=== PATIENT | male | born 1960 | race Caucasian/White ===

== ENCOUNTER 2020-10-01 10:57 | Observation (INO) | payer BC, SELFPAY ==
[2020-10-01] VITALS (8 sets, daily range): BP systolic 126–144; BP diastolic 64–98; PULSE 77–105; RESP 13–20; TEMP 36.3–37.1; O2SAT 96–100; BMI 22.1; BMI 22.9; BMI 23.0
--- NOTE | 2020-10-01 11:34 | EKG12_ITS ---
Test Reason : Blood Pressure : / mmHG Vent. Rate : 095 BPM Atrial Rate : 095 BPM P-R Int : 130 ms QRS Dur : 082 ms QT Int : 334 ms P-R-T Axes : 080 039 062 degrees QTc Int : 419 ms Normal sinus rhythm Normal ECG Confirmed by JIMBO JOHNSON, BERTO ([id number]), movie editor OBINNA FENG ([id number]) on 10/05/2020 9:57:23 AM Referred By: ARIANA Confirmed By:CHIN CHOI MD
[2020-10-01 11:36] LABS: Bedside Glucose > 500 mg/dL (70-110)
[2020-10-01 11:56] LABS: Absolute Lymphocyte Count 1.11 X10^3/uL (0.83-4.51); Absolute Neutrophil Count 5.9 X10^3/uL (2.0-7.7); Basophil# 0.04 X10^3/uL; Basophil% 0.5 % (0-1); Eosinophil# 0.03 X10^3/uL; Eosinophils% 0.4 % (0-5); Hematocrit 47.9 % (40-54); Hemoglobin 16.2 g/dL (13.0-16.5); Lymphocyte # 1.11 X10^3/ul (4.0); Lymphocyte % 14.1 % (19-41); Mean Corp Hgb Conc 33.8 g/dL (32-36); Mean Corpuscular Volume 91.6 fL (80-94); Mean Platelet Vol. 13.5 fl (6.2-12.0); Monocyte# 0.61 X10^3/uL; Monocyte% 7.8 % (0-10); NRBC Flagged by Analyzer 0 % (0-5); Neutrophil # 5.93 X10^3/uL (2.7-7.7); Neutrophil % 75.4 % (47-70); Platelet Count 177 K/mm3 (150-450); RBC Distribution Width CV 11.6 % (11.6-14.6); RBC Distribution Width SD 38.8 fl (35.1-43.9); Red Blood Count 5.23 M/mm3 (4.6-6.2); White Blood Count 7.9 K/mm3 (4.4-11.0)
[2020-10-01 12:02] LABS: ALB/GLOB Ratio 1.1 RATIO (0.9-2.4); AST(SGOT) 24 U/L (15-37); Alanine Aminotransfer ALT/SGPT 50 U/L (16-61); Albumin, Serum 4.3 g/dL (3.2-5.0); Alkaline Phosphatase 75 U/L (45-117); Anion Gap 15 (5-15); BUN 42 mg/dL (7-18); BUN/Creat Ratio 16.8 RATIO (10-20); Chloride 84 mmol/L (98-107); EST Glomerular Filtration Rate 28 mL/min (>60); Est Glom Filt Rate - Afr Amer 34 mL/min (>60); Estimated Creatinine Clearance 30.29 ml/min; Glucose 798 mg/dL (74-106); Protein, Total 8.3 g/dL (6.4-8.2); Sodium Level 120 mmol/L (136-145)
[2020-10-01 12:02] LABS: Bacteria 0 SEEN /hpf (None Seen); Mucous, Urine 0 SEEN /hpf (<or=2+); Red Blood Cells-Urine 0 SEEN /hpf (0-5); Squamous Epithelial Cells - UA 0 SEEN /hpf (0-5); White Blood Cells 0 SEEN /hpf (0-5)
[2020-10-01 12:04] LABS: Color, Urine Yellow (Yellow); Glucose, Dipstick 1000 mg/dl (Normal); Ketone-Dipstick 50 mg/dl (Negative); Leukocyte Esterase-Dipstick Negative /ul (Negative); Nitrite-Dipstick Negative (Negative); Occult Blood-Urine Negative /ul (Negative); Protein-Dipstick 15 mg/dl (Negative); Urine Bilirubin Dipstick Negative (Negative); Urine Clarity Clear (Clear); Urine Urobilinogen Normal (Normal)
--- NOTE | 2020-10-01 12:05 | RAD_ITS ---
STUDY: X-RAY CHEST REASON FOR EXAM: Male, 60 years old. Cough, HYPERGLYCEMIA, CURRENT SMOKER TECHNIQUE: Single AP portable view of the chest. COMPARISON: None. FINDINGS: Hyperinflation. The lungs are clear. A nodular density seen overlying the lateral aspect of the right lower lobe most likely representing a nipple shadow. There is no demonstrated pleural abnormality. Normal size heart. Normal mediastinum and tisha. Normal visualized pulmonary arteries. Normal visualized aortic arch and descending thoracic aorta. There are degenerative changes of the visualized thoracic spine. Normal visualized ribs, clavicles, and shoulders. There is no demonstrated abnormality of the visualized soft tissue structures of the upper abdomen. RAD/Chest 1 View (Portable) IMPRESSION: Normal x-ray examination of the chest. Electronically Signed: Duane Neumann MD at 12:21 EST , Service support ,
[2020-10-01] MEDS: 0.9% Normal Saline 1,000 ML 999 ML IV ×4 (12:28→18:04)
[2020-10-01 12:34] LABS: Lactic Acid 2.3 mmol/L (0.4-1.9)
--- NOTE | 2020-10-01 13:54 | NURSING ---
DR WESLEY L[address]
--- NOTE | 2020-10-01 14:14 | NURSING ---
ME SURG WESLEY HYPERGLYCEMIA, NEW ONSET DIABETES
--- NOTE | 2020-10-01 15:07 | HP.PCM_ITS ---
Problem List (1) DM type 2 (diabetes mellitus, type 2) Status: Acute (2) HTN (hypertension) Status: Chronic (3) Hyperlipidemia Status: Chronic (4) Tobacco abuse Status: Acute (5) Severe hyperglycemia due to diabetes mellitus Status: Acute (6) Hyponatremia Status: Acute (7) NETO (acute kidney injury) Status: Acute (8) Lactic acid acidosis Status: Acute History of Present Illness Date of Admission: 10/01/20 Mr. Harris is a 60 year old WM with a past medical history of hypertension, hyperlipidemia, and tobacco abuse who presented to the emergency department at [facility] on 10/01/2020 after being told by his primary care physician that he had a abnormally high blood sugar on recent laboratory data. On arrival his blood sugar was found to be 798. The patient states he has been having blurred vision, polydipsia, polyuria, and general malaise and fatigue. He states he has a strong family history of diabetes with both parents being diabetic. His father is secondary to cancer. He states his symptoms have been ongoing and he is just glad I do not have Covid. Vital signs in the emergency department was stable. His CBC was within normal limits. CMP showed pseudohyponatremia with a sodium of 120, corrected for glucose is 131. An elevated BUN at 42 and creatinine of 2.50. His baseline is unknown. He had a mildly elevated lactic acid at 2.3 which is likely related to his hypovolemia as his anion gap was within normal limits as was his bicarbonate level. His troponin was less than 0.015. UA showed a specific gravity of 1.010, urine glucose 1000. His acetone level was small on his serum toxicology. He was given 2 L of IV fluids bolus in the emergency department and 20 units of subcu Humulin R. This diagnosis of diabetes is new and he will be admitted to [facility] for further care. Past Medical History Past Medical History (Chronic Problems): Chronic Problems HTN (hypertension) (Chronic) Hyperlipidemia (Chronic) Allergies No Known Allergies Allergy (Verified 10/01/20 10:58) Home Medications: Ambulatory Orders Medication Instructions Recorded Atorvastatin Calcium 20 mg PO QHS 10/01/20 Lisinopril/Hydrochlorothiazide 1 ea PO BID 10/01/20 [Lisinopril-Hctz 20-12.5 mg Tab] Metoprolol Tartrate [Lopressor 100 mg PO BID 10/01/20 (Beta Suraj)] Multivitamin [Multiple Vitamins] 1 tab PO DAILY 10/01/20 Surgical History: noncontributory Psychiatric History: No pertinent psych hx Lives: With Family Smoking Status: Current every day smoker Tobacco Use: Secondhand, Cigarettes - Approximately 1 pack/day Alcohol: Rare - Occasional on weekends Drugs: None - *Family History Maternal History Items: Diabetes, Heart Disease Paternal History Items: Cancer, Diabetes Review of Systems Constitutional: Reports: Anorexia, Malaise, Weakness, Weight Change, Fatigue. Denies: Chills, Fever, Night Sweats Eyes: Reports: Blurred vision. Denies: Cataracts, Conjunctivae Inflammation, D ouble vision, Drainage, Eyelid Inflammation, Pain, Redness, Vision Change HEENT: Denies: Difficulty Hearing, Difficulty Swallowing, Ear Pain, Eye Pain, Head Aches, Nasal bleeding, Nasal Congestion, Post Nasal Drip, Sinus Congestion, Sinus Drainage, Sore Throat, Visual Changes Cardiovascular: Denies: Chest Pain, Claudication, Chest Pressure, Chest T ightness, Edema, Heaviness, Light Headedness, Orthopnea, Palpitations, Paroxysmal Noc. Dyspnea, Syncope Respiratory: Denies: Cough, Hemoptysis, Pleuritic Pain, Shortness of Breath, Shortness of breath at rest, Shortness of breath upon exertion, Sputum production, Wheezing Gastrointestinal: Reports: Constipation, - - Polydipsia. Denies: Abdominal P ain, Diarrhea, Dyspepsia, Hematemesis, Hematochezia, Nausea, Melena, Vomiting Genitourinary: Reports: Frequency, Nocturia. Denies: Dysuria, Hematuria, Hesitancy, Incontinence, Retention, Urgency Musculoskeletal: Denies: Back Pain, Joint Pain, Joint stiffness, Joint swelling, Joint Tenderness, Muscle pain, Neck Pain Skin: Denies: Dryness, Jaundice, Lesions, Pruritis, Rash, Skin Changes, Wounds Neurological: Reports: Blurred vision. Denies: Balance problems, Double vision, Change in Speech, Confusion, Difficulty swallowing, Focal weakness, Headaches, Incoordination, Numbness, Tingling, Tremor, Seizures Psychiatric: Denies: Anxiety, Depression Endocrine: Reports: Polydipsia, Polyuria. Denies: Change in Body Habitus, Heat/ Cold Intolerance, Hx of Irradiation, Hx of Thyroiditis Hematologic/ Lymphatic: Denies: Adenopathy, Anemia, Easy Bruising, Easy Bleeding, Petechiae, Purpura VTE Information - Inpt Only VTE Present on Admission: No VTE Mechan Device Prophylaxis: SCD's VTE Pharm Prophylaxis ordered?: Yes - Physical Exam Vitals/I&O's: Vital Signs Temp Pulse Resp BP Pulse Ox 98.8 F 90 13 143/98 H 100 10/01/20 14:39 10/01/20 14:39 10/01/20 14:39 10/01/20 14:39 10/01/20 14:39 Oxygen Delivery Method Room Air Weight: 70.534 kg Body Mass Index (BMI) 22.9 Intake and Output for Last 24 Hours 09/29/20 09/30/20 10/01/20 23:59 23:59 23:59 Intake Total 1000 / 1000 Balance 1000 / 1000 General: Alert, Oriented x3, Cooperative, No apparent distress, Well developed, Well nourished, - - Upper middle-aged white male sitting up in bed, appears comfortable, nontoxic HEENT: Atraumatic, PERRLA, EOMI, Normocephalic Oral: Moist Mucosa, No Gingival or Mucosal Lesions/ Ulcerations, - - Mallampati 2, no thrush, upper dentures in place Neck: Supple, No JVD, Negative Carotid Bruits, Negative Hepatojugular Reflux, No Nodes, No Nuchal Rigidity, Trachea Midline, Thyroid Normal Size and Texture Lungs: Clear to auscultation, No rhonchi, No wheeze, No rales, Diminished Cardiovascular: Regular rate, Regular Rhythm, Normal S1, Normal S2, No murmurs, No Ectopic Activity, No rub noted, No Gallop Abdomen: Bowel Sounds Present, Soft, Non Tender, Non-Distended, No hernias noted Extremities: No clubbing, No cyanosis, No edema, Capillary Refill Less than 3 Seconds, Peripheral Pulses Normal Skin: No rashes, No breakdown Musculoskeletal: No Tenderness to Palpation of Joints or Extremities, No Muscle Wasting Lymphatic: No Cervical, Supraclavicular, or Inguinal Adenopathy Neurological: Cranial nerves II-XII grossly intact, Deep Tendon Reflexes 2+/4 and Symmetrical, Neuro grossly intact, Motor Exam 5/5 strength throughout, Muscle tone normal Psych/Mental Status: Normal Affect, Appropriate, - - Very pleasant Microbiology Past 72 Hours 10/01/20 11:45 Mucosa - Nose SARS-CoV-2 Antigen (Rapid) - Final Laboratory Results 10/01/20 11:10: WBC 7.9, RBC 5.23, Hgb 16.2, Hct 47.9, MCV 91.6, MCH 31.0, MCHC 33.8, RDW Std Deviation 38.8, RDW Coeff of [place] 11.6, Plt Count 177, MPV 13.5 H, Immature Gran % (Auto) 1.800 H, Neut % (Auto) 75.4 H, Lymph % (Auto) 14.1 L, [place] % (Auto) 7.8, Eos % (Auto) 0.4, Baso % (Auto) 0.5, Absolute Neuts (auto) 5.9, Absolute Lymphs (auto) 1.11, Nucleated RBC % 0 10/01/20 11:10: Sodium 120 L, Potassium 5.0, Chloride 84 L, Carbon Dioxide 21.0, Anion Gap 15, BUN 42 H, Creatinine 2.50 H, Estim Creat Clear Calc 30.29, Est GFR (MDRD) Af Amer 34 L, Est GFR (MDRD) Non-Af 28 L, BUN/Creatinine Ratio 16.8, Glucose 798 H*, Calcium 10.0, Total Bilirubin 1.10 H, AST 24, ALT 50, Alkaline Phosphatase 75, Troponin I < 0.015, Total Protein 8.3 H, Albumin 4.3, Globulin 4.0, Albumin/Globulin Ratio 1.1 10/01/20 11:10: Acetone Level SMALL H 10/01/20 11:10: Hemoglobin A1c Pending 10/01/20 11:28: POC Glucose > 500 H* 10/01/20 11:40: Lactic Acid 2.3 H* 10/01/20 11:52: Urine Color Yellow, Urine Clarity Clear, Urine pH 5.0, Ur Specific [place] 1.010, Urine Protein 15 H, Urine Glucose (UA) 1000 H, Urine Ketones 50 H, Urine Occult Blood Negative, Urine Nitrite Negative, Urine Bilirubin Negative, Urine Urobilinogen Normal, Ur Leukocyte Esterase Negative, Urine RBC 0 SEEN, Urine WBC 0 SEEN, Ur Squamous Epith Cells 0 SEEN, Urine Bacteria 0 SEEN, Urine Mucus 0 SEEN Current Medications Acetaminophen (Acetaminophen 325 Mg Tablet) 650 mg PO Q6H PRN PRN PRN Reason: Pain Score 1-10/Temp > 100.7 F Al Hydroxide/Mg Hydroxide (Mag Hydrox/Al Hydrox/Simeth 30 Ml Udc) 30 ml PO Q6H PRN PRN PRN Reason: Gastric Burning Atorvastatin Calcium (Atorvastatin Calcium 20 Mg Tablet) 20 mg PO QHS [facility] Heparin Sodium (Porcine) (Heparin Injection (Vial) 5,000 Unit/Ml Vial) 5,000 unit SC Q12 JASVIR Hydralazine HCl (Hydralazine 20 Mg/Ml Vial) 10 mg IV Q6H PRN PRN PRN Reason: SBP>160 Sodium Chloride () 1,000 mls @ 150 mls/hr IV .Q6H40M [facility] Insulin Glargine (Insulin Glargine 100 Units/Ml Pen) 14 units SC QHS [facility] Insulin Human Lispro (Insulin Lispro 100 Unit/Ml Insuln.Pen) 4 unit SC BREAKFAST [facility] Insulin Human Lispro (Insulin Lispro 100 Unit/Ml Insuln.Pen) 4 unit SC DINNER [facility] Insulin Human Lispro (Insulin Lispro 100 Unit/Ml Insuln.Pen) 4 unit SC LUNCH [facility] Insulin Human Lispro (Insulin Lispro 100 Unit/Ml Insuln.Pen) 0 unit SC TIDAC JASVIR; Protocol Insulin Human Lispro (Insulin Lispro 100 Unit/Ml Insuln.Pen) 20 unit SC X1 ONE Stop: 10/01/20 15:16 Insulin Human Regular (Insulin U-500 Pen) 20 units SC X1 ONE Stop: 10/01/20 13:59 Melatonin (Melatonin 3 Mg Tablet) 3 mg PO QHS PRN PRN PRN Reason: INSOMNIA Metoprolol Tartrate (Metoprolol Tartrate 100 Mg Tablet) 100 mg PO BID [facility] Multivitamins (Multivitamins,Therapeutic Tablet) [facility] Ondansetron HCl (Ondansetron 4 Mg/2 Ml Vial) 4 mg IV Q8H PRN PRN PRN Reason: NAUSEA/VOMITING Senna/Docusate Sodium (Senna/Docusate Sodium 1 Tablet) 2 tablet PO BID PRN PRN PRN Reason: Constipation Sodium Chloride (0.9% Saline Lock 10 Ml Syringe) 10 - 40 ml IV UD PRN PRN Reason: SALINE FLUSH Assessment/Plan All Active Problems DM type 2 (diabetes mellitus, type 2) (Acute) Tobacco abuse (Acute) Severe hyperglycemia due to diabetes mellitus (Acute) Hyponatremia (Acute) NETO (acute kidney injury) (Acute) Lactic acid acidosis (Acute) New onset DM-2 -IV hydration--> continue normal saline at 150 cc/h -Patient was given 20 units of log in the emergency department -Start weight-based Lantus at 14 units this evening -Lispro 4 units 3 times daily with meals -Low-dose Humalog SSI -BGT AC and HS -A1c is pending -Check TSH -Dietitian to see -Recommend endocrinology follow-up after discharge NETO -Suspect related to dehydration with osmotic diuresis caused by hyperglycemia -IV hydration at normal with normal saline 150 cc per hour x24 hours -If not improved in the morning would encourage further work-up with retroperitoneal ultrasound and urine studies -BMP in a.m. -Avoid nephrotoxins -Hold lisinopril HCTZ Hypertension Continue metoprolol 100 mg twice daily -As needed hydralazine 10 mg IV every 6 hours as needed Hyperlipidemia -Continue atorvastatin Tobacco abuse -Patient smokes approximately 1 pack/day -Recommend cessation -Nicotine patch available DVT prophylaxis -Heparin twice daily -SCDs while in bed CODE STATUS -Full Inpatient E&M: 42536 Init Hosp L3
[2020-10-01] MEDS: Insulin Lispro 100 UNIT/ML INSULN.PEN 20 UNIT SC (15:21)
[2020-10-01 15:30] LABS: Bedside Glucose 480 mg/dL (70-110)
--- NOTE | 2020-10-01 15:36 | NURSING ---
Education provided to patient on checking blood glucose and insulin administration, demonstration provided, receptive to education.
[2020-10-01 15:37] LABS: Hemoglobin A1c 12.3 % (3.8-5.6)
[2020-10-01 15:54] LABS: Reflex Lactate? Y
[2020-10-01] MEDS: 0.9% Normal Saline 1,000 ML 150 ML IV (16:02)
--- NOTE | 2020-10-01 16:34 | ED.DCSUM_ITS ---
- ER Visit Summary Date of Service: 10/01/20 Chief Complaint: Hyperglycemia History of Present Illness: The patient is a 60 M who presents with elevated blood sugars for the past 3 days. Patient had outpatient labs drawn 2 days ago and his blood sugar at that time was 845. Patient states he has not eaten for the past 2 days. Patient states he has only been taking oral fluids. Patient states his primary care physician called him today and referred him to the emergency department. Patient admits to urinary frequency, polydipsia, polyuria. Patient admits to some general weakness. Physical Examination: Vital signs are stable except for slight tachycardia of 105. Patient is afebrile. Patient is in no acute distress. Oral mucosa is pink and moist. Neck is supple. Trachea is midline. There is no JVD noted. Heart was regular rate and rhythm. Lungs are clear and equal bilaterally. Abdomen is soft. Bowel sounds are normal. There is no tenderness. There is no rebound or guarding noted. Skin is warm dry. Cranial nerves II through XII are intact. There are no focal motor or sensory deficits noted. Extremities are intact. There is no calf tenderness or edema. Test Results: CBC was within normal limits. Comprehensive metabolic profile showed a glucose of 798, sodium of 120, chloride of 84, BUN of 42, and creatinine of 2.5. Troponin was normal. Lactate was slightly elevated 2.3. Serum ketone was small. Urinalysis does not show any evidence of urinary tract infection. Portable 1 view chest x-ray was obtained. On my interpretation, lung castillo are clear. There is normal cardiac silhouette. Bony thorax is normal. There is no acute process noted. Radiologist also interpreted the x- ray and agrees. EKG was obtained. On my interpretation, there is normal sinus rhythm with a rate of 95. There are no acute ST or T wave changes. This was unchanged compared to previous EKG dated 11/13/2008 Emergency Department Course and Treatment: Patient was given 3 L of IV fluids. Patient was given Humulin R subcutaneous. Case was discussed with the hospitalist. She will admit the patient to her service. Patient understood and was agreeable with the plan. All questions were answered. Disposition: Admit to hospital Impression: 1. Hyperglycemia 2. New onset diabetes 3. Acute kidney injury This note was generated with [employer]ation software. It may contain incorrect words, spelling, and punctuation that were not noted in review of the chart prior to signing ED Disposition - Plan for ED Patient: Disposition: Acute Care Hospital [facility] Diagnosis: Hyperglycemia, Acute kidney injury, DM type 2 (diabetes mellitus, type 2)
[2020-10-01 17:49] LABS: Lactic Acid 3.5 mmol/L (0.4-1.9)
[2020-10-01 18:11] LABS: Bedside Glucose 283 mg/dL (70-110)
[2020-10-01] MEDS: Atorvastatin Calcium 20 MG Tablet PO (22:05)
[2020-10-01] MEDS: Heparin Injection (Vial) 5,000 UNIT/ML VIAL 5000 UNIT SC (22:05)
[2020-10-01] MEDS: Metoprolol Tartrate 100 MG Tablet PO (22:06)
[2020-10-01 22:31] LABS: Bedside Glucose 305 mg/dL (70-110)
[2020-10-02 02:27] VITALS: BP 128/70; PULSE 54; RESP 18; TEMP 36.4; O2SAT 98
[2020-10-02] MEDS: 0.9% Normal Saline 1,000 ML 150 ML IV ×2 (05:10→10:08)
[2020-10-02 06:26] LABS: Absolute Lymphocyte Count 1.22 X10^3/uL (0.83-4.51); Absolute Neutrophil Count 2.5 X10^3/uL (2.0-7.7); Basophil# 0.03 X10^3/uL; Basophil% 0.7 % (0-1); Eosinophils% 2.4 % (0-5); Hematocrit 34.7 % (40-54); Hemoglobin 11.9 g/dL (13.0-16.5); Lymphocyte # 1.22 X10^3/ul (4.0); Mean Corp Hgb Conc 34.3 g/dL (32-36); Mean Corpuscular Hgb 31.5 pg (27.0-32.0); Mean Corpuscular Volume 91.8 fL (80-94); Mean Platelet Vol. 12.6 fl (6.2-12.0); Monocyte% 7.1 % (0-10); NRBC Flagged by Analyzer 0 % (0-5); Neutrophil # 2.54 X10^3/uL (2.7-7.7); Neutrophil % 60.3 % (47-70); POSITIVE COUNT YES; Platelet Count 95 K/mm3 (150-450); RBC Distribution Width CV 11.8 % (11.6-14.6); RBC Distribution Width SD 39.6 fl (35.1-43.9); Red Blood Count 3.78 M/mm3 (4.6-6.2); White Blood Count 4.2 K/mm3 (4.4-11.0)
[2020-10-02 07:06] LABS: Anion Gap 5 (5-15); BUN 26 mg/dL (7-18); BUN/Creat Ratio 20.6 RATIO (10-20); Chloride 107 mmol/L (98-107); Creatinine, Serum 1.26 mg/dL (0.70-1.30); EST Glomerular Filtration Rate 62 mL/min (>60); Est Glom Filt Rate - Afr Amer 75 mL/min (>60); Estimated Creatinine Clearance 60.64 ml/min; Glucose 233 mg/dL (74-106); Magnesium 1.9 mg/dL (1.6-2.6); Phosphorus 2.3 mg/dL (2.5-4.9); Potassium 4.1 mmol/L (3.5-5.1); Sodium Level 135 mmol/L (136-145); Thyroid Stim Hormone (TSH) 0.74 uIU/mL (0.358-3.74)
[2020-10-02 07:35] VITALS: O2SAT 96
[2020-10-02] MEDS: Insulin Lispro 100 UNIT/ML INSULN.PEN SC ×2 (09:16→11:27)
[2020-10-02] MEDS: Aspirin 81 MG TAB.CHEW PO (09:21)
[2020-10-02] MEDS: Multivitamins,Therapeutic Tablet 1 TABLET PO (09:21)
[2020-10-02 09:23] VITALS: BP 126/71; PULSE 64; RESP 18; TEMP 36.7; O2SAT 97
[2020-10-02] MEDS: Heparin Injection (Vial) 5,000 UNIT/ML VIAL 5000 UNIT SC (09:23)
[2020-10-02 09:24] VITALS: BP 126/71; PULSE 64
[2020-10-02] MEDS: Metoprolol Tartrate 100 MG Tablet PO (09:24)
--- NOTE | 2020-10-02 11:14 | PCM.NTREPORT ---
Nutrition Therapy Report - History Nutrition Services has been consulted to:: Conduct nutrition education Current diet / nutrition support order:: 2000 calorie controlled, consistent CHO - Anthropometric Measurements Height:: 5 ft 9 in Weight:: 70.534 kg Body Mass Index (BMI):: 22.9 - Relevant Labs Relevant Labs:: WBC 4.2 K/mm3 (4.4-11.0) L 10/02/20 05:50 RBC 3.78 M/mm3 (4.6-6.2) L 10/02/20 05:50 Hgb 11.9 g/dL (13.0-16.5) L 10/02/20 05:50 Hct 34.7 % (40-54) L 10/02/20 05:50 Plt Count 95 K/mm3 (150-450) L 10/02/20 05:50 MPV 12.6 fl (6.2-12.0) H 10/02/20 05:50 Immature Gran % (Auto) 1.800 % (0.0-0.9) H 10/01/20 11:10 Neut % (Auto) 75.4 % (47-70) H 10/01/20 11:10 Lymph % (Auto) 14.1 % (19-41) L 10/01/20 11:10 Sodium 135 mmol/L (136-145) L 10/02/20 05:50 Chloride 84 mmol/L (98-107) L 10/01/20 11:10 BUN 26 mg/dL (7-18) H 10/02/20 05:50 Creatinine 2.50 mg/dL (0.70-1.30) H 10/01/20 11:10 Est GFR (MDRD) Af Amer 34 mL/min (>60) L 10/01/20 11:10 Est GFR (MDRD) Non-Af 28 mL/min (>60) L 10/01/20 11:10 BUN/Creatinine Ratio 20.6 RATIO (10-20) H 10/02/20 05:50 Glucose 233 mg/dL (74-106) H 10/02/20 05:50 Hemoglobin A1c 12.3 % (3.8-5.6) H 10/01/20 11:10 Lactic Acid 3.5 mmol/L (0.4-1.9) H* 10/01/20 16:59 Calcium 8.0 mg/dL (8.5-10.1) L 10/02/20 05:50 Phosphorus 2.3 mg/dL (2.5-4.9) L 10/02/20 05:50 Total Bilirubin 1.10 mg/dL (0.20-1.00) H 10/01/20 11:10 Total Protein 8.3 g/dL (6.4-8.2) H 10/01/20 11:10 - Assessment Food / Nutrition-Related History:: Good intake at meals since admission. Pt states he was not eating much over past 3-4 days d/t hyperglycemia- was hoping fasting would bring down BG. 4.5#/2.8% wt loss < 1 week. No special diet at home. Drinks 4-5 cans of Pepsi/day, coffee w/ sugar and cream every AM. - Nutrition Diagnosis Problem / Etiology / Signs & Symptoms (PES):: Food and nutrition related knowledge deficit r/t lack of previous exposure to diabetes nutrition education as evidenced by reported lack of knowledge of CHO containing foods, high intake of CHO containing beverages, elevated blood glucose, A1C 12.3% Evidence of Malnutrition Exists:: No - Nutrition Intervention Nutrition Prescription:: 7077-1455 calories/day (1.3xRMR). 60-70 g protein/day (1g/kg). 2000mL fluid/day (30mL/kg) - Food / Nutrient Delivery Interventions Summary of nutrition intervention:: 10/01/20: Detailed instruction given to pt regarding CHO in diet. Encouraged pt to use plate method when planning meals/snacks. Explained need for consistent CHO throughout the day. Discussed limiting intake of sugar sweetened beverages- pt states he can work on cutting back on pop/coffee w/ sugar. ADA Plate Method handout provided. 10/02/20: Pt asking for a more detailed book for DM diet. Given ADA Food Lists for Diabetes book. Reviewed contents of book w/ pt, explained book discusses serving sizes and CHO content of different foods. Pt states this will be helpful. RDN contact info given, encouraged pt to call w/ questions. Nutrition support ordered as / adjusted to:: continue consistent CHO, 2000 calorie controlled diet. Nutrition education provided?: Yes - see above - MNT Monitoring Further MNT monitoring and evaluation required?: Yes - Would benefit from referral to [facility] for outpatient f/u MNT Follow-up in:: 3-5 days
[2020-10-02 11:19] VITALS: BMI 22.9
[2020-10-02] MEDS: metFORMIN HCl 500 MG Tablet PO (11:23)
[2020-10-02 11:25] LABS: Bedside Glucose 223 mg/dL (70-110)
[2020-10-02 11:36] LABS: Bedside Glucose 257 mg/dL (70-110)
--- NOTE | 2020-10-02 12:20 | CASEMGMT ---
This RN CM to room to talk to pt regarding discharge plan. Pt states has been giving own insulin and checking blood sugar here and states no concerns regarding this going home. Pt is aware that [facility] has DM initiative and to let them know that he is a new onset DM when he calls to make f/u appt with Dr. Castro, voices understanding. Pt voices no further questions/concerns/needs at this time. SStaten RN CM
--- NOTE | 2020-10-02 12:30 | DCINST_ITS ---
- Discharge Diagnoses Current Active Problems: Current Active and Chronic Problems DM type 2 (diabetes mellitus, type 2) (Acute) HTN (hypertension) (Chronic) Hyperlipidemia (Chronic) Tobacco abuse (Acute) Severe hyperglycemia due to diabetes mellitus (Acute) Hyponatremia (Acute) NETO (acute kidney injury) (Acute) Lactic acid acidosis (Acute) Hyperglycemia (Acute) You will use the following diet at home:: Calorie/Carbohydrate Controlled (specify 1200, 1400, etc) - 1800 canelo Your food should be the consistency of: Regular Your liquids should be the consistency of: Regular/Thin Discharge Activity: Return to Normal Activity Weight Bearing Status: Full weight bearing Additional Instructions: Take your blood sugars three times a day before meals and keep a chart of the readings-notify your ohysician if blood sugar is over 400 Begin Lantus insulin 25 units subcu at breakfast daily starting 10/03/2020 Allergies/Adverse Reactions: Allergies No Known Allergies Allergy (Verified 10/01/20 10:58) Medications to take at Discharge Atorvastatin Calcium 20 mg PO QHS 10/01/20 Metoprolol Tartrate [Lopressor (beta estee)] 100 mg PO BID 10/01/20 Multivitamin [Multiple Vitamins] 1 tab PO DAILY 10/01/20 Insulin Glargine [Lantus SoloStar Pen] 25 - 35 units SC BREAKFAST #5 pen 10/02/20 Lisinopril/Hydrochlorothiazide [Lisinopril-Hctz 20-12.5 mg Tab] 1 ea PO DAILY #1 tab 10/02/20 Pen Needle, Diabetic [Pen Needle] 1 ea MC DAILY #100 dis.needle 10/02/20 metFORMIN HCl [Glucophage] 500 mg PO UD #120 tab 10/02/20 The following prescriptions were given: metFORMIN HCl [Glucophage] 500 mg PO UD #120 tab Transmission Status: Received by [id number] Insulin Glargine [Lantus SoloStar Pen] 25 - 35 units SC BREAKFAST #5 pen Transmission Status: Received by [id number] Lisinopril/Hydrochlorothiazide [Lisinopril-Hctz 20-12.5 mg Tab] 1 ea PO DAILY #1 tab Transmission Status: Received by [id number] Pen Needle, Diabetic [Pen Needle] 1 ea MC DAILY #100 dis.needle Transmission Status: Received by [id number] Orders to be completed after discharge: Glucometer Location: None Selected Glucometer Location: None Selected Primary Care Physician: Audelia Castro MD [Primary Care Provider] - Please follow up with your Primary Care Physician in: next week Test Results: Test results from this visit will be discussed in further detail at your follow- up appointment, if applicable.
--- NOTE | 2020-10-02 18:27 | DS.PCM_ITS ---
Discharge Date and Diagnosis - Problem List Patient Problems: Active and Suspected Problems DM type 2 (diabetes mellitus, type 2) (Acute) Tobacco abuse (Acute) Severe hyperglycemia due to diabetes mellitus (Acute) Hyponatremia (Acute) NETO (acute kidney injury) (Acute) Lactic acid acidosis (Acute) Hyperglycemia (Acute) Date of Admission: 10/01/20 Date of Discharge: 10/02/20 - Primary Discharge Diagnosis Acute Problems: Active Problems DM type 2 (diabetes mellitus, type 2) (Acute)-uncontrolled Severe hyperglycemia due to diabetes mellitus (Acute) Hyponatremia (Acute) NETO (acute kidney injury) (Acute) Lactic acid acidosis (Acute)-secondary to NETO Vaginal hypertension - Secondary Discharge Diagnosis Chronic Problems: Chronic Problems HTN (hypertension) (Chronic) Hyperlipidemia (Chronic) Hospital Course and Treatment Operations: None Procedures: None Summary of Care Provided: The patient is a 60 year old M was seen in the emergency room at [facility] with a chief complaint of elevated sugars for the past 3 days, patient had outpatient labs drawn 2 days prior and his blood sugar at that time was 845. Patient went on a fast and an attempt to lower his blood sugar, he is was only taking oral fluids. His primary care physician called him and referred him to the emergency room for further care. Patient admits to urinary frequency polydipsia and polyuria. Labs reveal a normal CBC, comprehensive metabolic profile showed a glucose of 798, sodium of 120, chloride of 84, BUN of 42, and creatinine of 2.5. Lactic acid was slightly elevated 2.3, serum ketone level small, urinalysis was unremarkable. Chest x-ray was obtained which was unremarkable. Patient was given 3 L of IV fluids and he was given Humulin R subcutaneously and he was placed in observation status on PCU, aggressive IV fluid administration was carried out and his blood sugars were monitored. He was seen in consultation by the dietitian. Patient's diuretics were held as well as his DWIGHT inhibitor. On 10/02/2020, patient was seen and examined: On examination he appeared in good health and spirits. Vital signs as documented. Skin warm and dry and without overt rashes. Neck without JVD, neck was supple, trachea midline, thyroid was normal. Lungs clear bilaterally, normal air movement was noted. Heart exam notable for regular rhythm, normal sounds and absence of murmurs, rubs or gallops. Abdomen unremarkable and without evidence of organomegaly, masses, or abdominal aortic enlargement. Bowel sounds are present, abdomen is not distended. Extremities nonedematous, no cyanosis was noted, no clubbing was noted. Neuro: Cranial nerves II through XII are grossly intact, no focal motor deficits were noted, sensation to light touch and pinprick intact, motor exam 5/5 throughout. Psych: Patient is alert and oriented x3, he does not appear anxious or depressed, he does not appear agitated. On 10/02/2020, patient appeared stable for discharge home, his blood sugars were improved. Patient Problems: Active and Suspected Problems DM type 2 (diabetes mellitus, type 2) (Acute) Tobacco abuse (Acute) Severe hyperglycemia due to diabetes mellitus (Acute) Hyponatremia (Acute) NETO (acute kidney injury) (Acute) Lactic acid acidosis (Acute) Hyperglycemia (Acute) - Physical Exam Vitals/I&O's: Vital Signs Temp Pulse Resp BP Pulse Ox 98.1 F 64 18 126/71 H 97 10/02/20 09:23 10/02/20 09:24 10/02/20 09:23 10/02/20 09:24 10/02/20 09:23 Oxygen Delivery Method Room Air Weight: 70.534 kg Body Mass Index (BMI) 22.9 Intake and Output for Last 24 Hours 09/30/20 10/01/20 10/02/20 23:59 23:59 23:59 Intake Total 4945 / 4945 1640 / 1640 Balance 4945 / 4945 1640 / 1640 Microbiology Past 72 Hours 10/01/20 11:45 Mucosa - Nose SARS-CoV-2 Antigen (Rapid) - Final Laboratory Results 10/01/20 22:13: POC Glucose 305 H 10/02/20 05:50: WBC 4.2 L, RBC 3.78 L, Hgb 11.9 L, Hct 34.7 L, MCV 91.8, MCH 31.5, MCHC 34.3, RDW Std Deviation 39.6, RDW Coeff of [place]ina 11.8, Plt Count 95 L, MPV 12.6 H, Immature Gran % (Auto) 0.500, Neut % (Auto) 60.3, Lymph % (Auto) 29.0, Buchanan % (Auto) 7.1, Eos % (Auto) 2.4, Baso % (Auto) 0.7, Absolute Neuts (auto) 2.5, Absolute Lymphs (auto) 1.22, Nucleated RBC % 0 10/02/20 05:50: Sodium 135 L, Potassium 4.1, Chloride 107, Carbon Dioxide 23.0, Anion Gap 5, BUN 26 H, Creatinine 1.26, Estim Creat Clear Calc 60.64, Est GFR (MDRD) Af Amer 75, Est GFR (MDRD) Non-Af 62, BUN/Creatinine Ratio 20.6 H, Glucose 233 H, Calcium 8.0 L, Phosphorus 2.3 L, Magnesium 1.9, TSH 0.74 10/02/20 09:14: POC Glucose 223 H 10/02/20 11:27: POC Glucose 257 H Discharge Activity: Return to Normal Activity Weight Bearing Status: Full weight bearing Home Medications: Medications to take at Discharge Atorvastatin Calcium 20 mg PO QHS 10/01/20 Metoprolol Tartrate [Lopressor (beta estee)] 100 mg PO BID 10/01/20 Multivitamin [Multiple Vitamins] 1 tab PO DAILY 10/01/20 Insulin Glargine [Lantus SoloStar Pen] 25 - 35 units SC BREAKFAST #5 pen 10/02/20 Lisinopril/Hydrochlorothiazide [Lisinopril-Hctz 20-12.5 mg Tab] 1 ea PO DAILY #1 tab 10/02/20 Pen Needle, Diabetic [Pen Needle] 1 ea MC DAILY #100 dis.needle 10/02/20 metFORMIN HCl [Glucophage] 500 mg PO UD #120 tab 10/02/20 Following Prescriptions Were Given to Patient: metFORMIN HCl [Glucophage] 500 mg PO UD #120 tab Transmission Status: Received by [facility] Insulin Glargine [Lantus SoloStar Pen] 25 - 35 units SC BREAKFAST #5 pen Transmission Status: Received by [facility] Lisinopril/Hydrochlorothiazide [Lisinopril-Hctz 20-12.5 mg Tab] 1 ea PO DAILY #1 tab Transmission Status: Received by [facility] Pen Needle, Diabetic [Pen Needle] 1 ea MC DAILY #100 dis.needle Transmission Status: Received by [facility] Other Amb Orders: Glucometer Location: None Selected Glucometer Location: None Selected Primary Care Physician: Audelia Castro MD [Primary Care Provider] - Please follow up with your Primary Care Physician in: next week Disposition: Home Minutes spent on discharge:: 30 Patient Condition:: Stable Medical Necessity - Tobacco Use Smoking Status: Current every day smoker Tobacco Use: Secondhand, Cigarettes Meaningful Use Info Meaningful Use Diagnoses (Choose all that apply): None applicable OBSV E&M: 03685 Observation care discharge
== END 2020-10-02 13:19 | disposition home health service (06) ==
LOC: ED 12:27 → PCU 14:17
PROVIDERS: Admitting Provider Internal Medicine; Emergency Provider Emergency Medicine; PCP Internal Medicine; Visit Provider Internal Medicine
DX: E11.65 Type 2 diabetes mellitus with hyperglycemia (principal); E78.5 Hyperlipidemia, unspecified; I10 Essential (primary) hypertension; Z79.899 Other long term (current) drug therapy; E87.1 Hypo-osmolality and hyponatremia; N17.9 Acute kidney failure, unspecified; Z83.3 Family history of diabetes mellitus; F17.210 Nicotine dependence, cigarettes, uncomplicated
CPT/HCPCS: 36415; 71045; 80048; 80053; 81001; 82009; 82962; 83036; 83605; 83735; 84100; 84443; 84484; 85025; 87426; 93005; 96360; 96361; 96372; 97802; 97803; 99218; 99251; 99285; 99406; J7030; A4216; G0378; G0463

== ENCOUNTER 2023-02-03 09:16 | Day surgery (SDC) | payer BC, SELFPAY ==
[2023-02-03] VITALS (7 sets, daily range): BP systolic 97–134; BP diastolic 60–91; PULSE 60–76; RESP 16–18; TEMP 36.2–36.8; O2SAT 95–99; BMI 22.1
[2023-02-03] MEDS: Lactated Ringers 1,000 ML 15 ML IV (09:44)
[2023-02-03 10:08] LABS: Bedside Glucose 120 mg/dL (74-106)
--- NOTE | 2023-02-03 10:15 | IMM_PTH ---
PATIENT: SYL AGUAYO Jr. LOC: EN U#:[id number] AGE/SX: 62/M ROOM: RE02/03/[address]: Dr. Manuelito Baum MD : 1960 BED: DIS: 02/03/2023 SPEC #: [id number] RECD: 02/03/23 13:33 STATUS: COLLIN RETima #: [id number] JEIMY: 02/03/23 10:[address]: Manuelito Baum DEPT: IMMUNOHISTOCHEMISTRY RECD BY: Alisia Staley ENTERED: 02/03/23 13:35 SP TYPE: IMMUNO OTHR DR: Dr. Audelia Castro MD Tissues: A - Stomach, NOS Procedures: H Pylori (initial) PHYSICIAN & INSTITUTION [place] [id number] SPECIMEN INFORMATION: Tissue Source: A - Antrum biopsy Clinical Info: History of colon polyps, abnormal weight loss Specimen Number: [id number] CPT code: 47834 METHODOLOGY: Deparaffinized sections of prefer/formalin-fixed tissue or PAP/DQ stained slides are incubated with monoclonal/polyclonal antibodies/oligonucleotide probes. Localization is made via biotin free immunoperoxidase method. Appropriate controls are performed and reacted as expected. Results on target cell population are indicated in the following table: RESULTS: ANTIBODY / CLONE RESULT Block A H Pylori (polyclonal) negative These tests were developed and their performance characteristics determined by [facility]. They may not have been cleared or approved by the U.S. Food and Drug Administration. The FDA has determined that such clearance or approval is not necessary. The above immunohistochemical/dualISH markers are ordered and reviewed by the Pathologist. INTERPRETATION: A. Antrum, biopsy: Negative for Helicobacter pylori organisms. SJ:carissa 02/08/2023
--- NOTE | 2023-02-03 10:15 | EGD_PTH ---
PATIENT: SYL AGUAYO Jr. LOC: EN U#:[id number] AGE/SX: 62/M ROOM: RE02/03/[address]: Dr. Manuelito Baum MD : 1960 BED: DIS: 02/03/2023 SPEC #: [id number] RECD: 02/03/23 12:09 STATUS: COLLIN VENESSA #: [id number] JEIMY: 02/03/23 10:[address]: Manuelito Baum DEPT: SURGICAL PATHOLOGY RECD BY: Liza Rosario ENTERED: 02/03/23 12:54 SP TYPE: EGD BIOPSY OT DR: Dr. Audelia Castro MD Tissues: A - Gastric mucous membrane B - Stomach, NOS Procedures: Surgery Specimen Level IV HEADER OPERATION: Colonoscopy, EGD ([facility]), biopsy PRE-OP DIAGNOSIS: History of colon polyps, abnormal weight loss TISSUE SUBMITTED: A - Antrum biopsy for H. pylori and path, B - Stomach ulcer margin biopsy MICROSCOPIC DIAGNOSIS A. Antrum, biopsy: Mild gastritis. See microscopic description and comment. B. Stomach ulcer, biopsy: Mild gastritis. See microscopic description. SJ:carissa 02/06/2023 COMMENT A. The results of immunohistochemistry for Helicobacter pylori will be reported separately ([id number]). MICROSCOPIC DESCRIPTION Slides are reviewed. A & B. The specimen shows fragments of gastric mucosa with chronic inflammatory cell infiltrates in the lamina propria consisting of lymphocytes and plasma cells, consistent with mild chronic gastritis. GROSS DESCRIPTION A - Received in fixative is one container labeled with the patient's name and designated antrum biopsy. The specimen consists of one irregular fragment of light jordan soft tissue that measures 0.6 x 0.3 x 0.1 cm. The specimen is totally submitted in one cassette. B - Received in fixative is one container labeled with the patient's name and designated stomach ulcer. The specimen consists of one irregular fragment of light jordan soft tissue that measures 0.5 x 0.5 x 0.1 cm. The specimen is totally submitted in one cassette. / AM:carissa 02/03/2023 TC:3 CPT: 81160 x2
--- NOTE | 2023-02-03 10:55 | HP.PCM_ITS ---
History and Physical Date of Admission: 02/03/23 Intake Vital Signs 12/23/2307:27 Height 5 ft 9 in Weight: 138 lb BMI 20.3 BP 121/84 H Blood Pressure Location Rt brachial Position Sitting Respiration 19 H Pulse 85 Pulse Source Monitor Temp Source Temporal Pulse Oximetry (%) 96 Intake Visit Reasons: CHRONIC CONSTIPATION/SIGNIFICANT WEIGHT LOSS Chief Complaint: dm Allergies No Known Allergies Allergy (Verified 12/22/22 08:30) Medications multivitamin 1 tab PO DAILY SUPPLEMENT 10/01/20 [History Confirmed 12/22/22] saw palm 160 mg-vit E 100 unit-selen 100 ukj-rfkz-icjlla-pygeum tablet ([employer]) tab PO 12/16/22 [History Confirmed 12/22/22] PFSH Medical History Hx of colonic polyps Surgical History History of colonoscopy Social History Smoking Status: Current every day smoker HPI HPI HPI: Patient is here for colonoscopy and EGD. The patient notes that he had a colonoscopy 3 years ago and 9 polyps were removed. He is due for surveillance. He denies any abdominal pain or blood in the stool. The patient also had a large amount of weight loss but says he has been eating less since his lower teeth were removed. ROS General General: Yes weight change; No fatigue HEENT HEENT: No difficulty swallowing Endo Endocrine: No thyroid disease Musc Musculoskeletal: No back problems or arthritis Cardio Cardiovascular: No pacemaker, heart disease, atrial fibrillation, high blood pressure, heart attack, heart stent, palpitations or chest pain Psych Psychiatric: No depression or anxiety Resp Respiratory: No shortness of breath, No cough, No COPD, No asthma and No emphysema Gastro Gastrointestinal: No abdominal pain, No nausea or vomiting, No diarrhea, No constipation, No blood in stool, No acid reflux, No hemorrhoids, No ulcers, No gallbladder problem and No black,tarry stools David Hematologic: No blood thinners Exam Const General: cooperative Orientation: alert and oriented x3 HENMT Head: normal to inspection Neck Neck: normal visual inspection and full ROM Chest Chest palpation & inspection: normal inspection of the chest Resp Effort & Inspection: normal respiratory effort Auscultation: clear to auscultation bilaterally Cardio Rate: regular rate Rhythm: regular rhythm GI Inspection: non-distended Palpation: soft and nontender Skin General: no rashes or lesions noted Neuro General: patient alert and patient oriented x3 Extrem General: full ROM Psych Appearance: grossly normal Mental Status: mental status grossly normal Assessment and Plan Assessment and Plan (1) History of colon polyps: Status: Acute (2) Weight loss, abnormal: Status: Acute Orders: Orders Colonoscopy Today EGD Today Plan Patient has a history of colon polyps and 9 polyps removed during his last colonoscopy 3 years ago. He has been also been having some weight loss but he says he has been eating less since his teeth removed. I discussed doing an upper and lower endoscopy to ensure that there is no malignancy in the upper GI tract as he does have a family history of esophageal cancer in his father. I will perform an EGD and colonoscopy. I explained endoscopy in detail to the patient. I explained the risks including but not limited to stroke or heart attack with anesthesia, perforation of the GI tract, bleeding, infection. I explained that any of these could necessitate further emergency surgery. The patient understands and all questions were answered sufficiently. The patient wishes to proceed with procedure. Manuelito Baum MD Pager: [facility] [address] [place] [address] [address] [place] [address] Office: I have examined the patient and the H&P has been reviewed. There are no clinical changes since date of exam.
--- NOTE | 2023-02-03 11:25 | OP.EGD_ITS ---
Patient Name: Crow Harris Procedure Date: 02/03/2023 10:57 AM Date of : 1960 Age: 62 Procedure: Upper GI endoscopy Indications: Weight loss Providers: Manuelito Baum MD Medicines: Monitored Anesthesia Care Patient Profile: This is a 62 year old male. Refer to note in patient chart for documentation of history and physical. Complications: No immediate complications. Procedure: Pre-Anesthesia Assessment: - Prior to the procedure, a History and Physical was performed, and patient medications and allergies were reviewed. The patient's tolerance of previous anesthesia was also reviewed. The risks and benefits of the procedure and the sedation options and risks were discussed with the patient. All questions were answered, and informed consent was obtained. Prior Anticoagulants: The patient has taken no previous anticoagulant or antiplatelet agents. After reviewing the risks and benefits, the patient was deemed in satisfactory condition to undergo the procedure. After obtaining informed consent, the endoscope was passed under direct vision. Throughout the procedure, the patient's blood pressure, pulse, and oxygen saturations were monitored continuously. The gastroscope was introduced through the mouth, and advanced to the third part of duodenum. The upper GI endoscopy was accomplished without difficulty. The patient tolerated the procedure well. Scope In: 11:06:07 AM Scope Out: 11:09:41 AM Total Procedure Duration Time 0 hours 3 minutes 34 seconds Findings: The esophagus was normal. One non-bleeding cratered gastric ulcer with no stigmata of bleeding was found in the cardia. Biopsies were taken with a cold forceps for histology. Scattered severe inflammation with hemorrhage characterized by adherent blood was found in the stomach. Biopsies were taken with a cold forceps for Helicobacter pylori testing. The examined duodenum was normal. Impression: - Normal esophagus. - Non-bleeding gastric ulcer with no stigmata of bleeding. Biopsied. - Gastritis with hemorrhage. Biopsied. - Normal examined duodenum. Recommendation: - Discharge patient to home. - Resume previous diet. - Continue present medications. - Use Prilosec (omeprazole) 40 mg PO daily for 2 months. - Use sucralfate tablets 1 gram PO BID for 2 weeks. Procedure Code(s): --- Professional --- 38428, Esophagogastroduodenoscopy, flexible, transoral; with biopsy, single or multiple Diagnosis Code(s): --- Professional --- K25.9, Gastric ulcer, unspecified as acute or chronic, without hemorrhage or perforation K29.71, Gastritis, unspecified, with bleeding R63.4, Abnormal weight loss CPT copyright 2017 [employer]. All rights reserved. The codes documented in this report are preliminary and upon front desk host review may be revised to meet current compliance requirements. Manuelito Baum MD 02/03/2023 11:25:26 AM This report has been signed electronically. Number of Addenda: 0 Note Initiated On: 02/03/2023 10:57 AM
--- NOTE | 2023-02-03 11:26 | OP.CCLET_ITS ---
02/03/2023 Audelia Castro [address] [place] [address] Re : Upper GI endoscopy procedure for Crow Harris Dear Dr. Castro This procedure was performed on Friday, February 03, 2023. My impressions and recommendations are as follows: Impressions : - Normal esophagus. - Non-bleeding gastric ulcer with no stigmata of bleeding. Biopsied. - Gastritis with hemorrhage. Biopsied. - Normal examined duodenum. Recommendations : - Discharge patient to home. - Resume previous diet. - Continue present medications. - Use Prilosec (omeprazole) 40 mg PO daily for 2 months. - Use sucralfate tablets 1 gram PO BID for 2 weeks. My findings are described in the full procedure note, which is enclosed. If I can be of further assistance, please feel free to contact me at Doctor phone number(s): , Work: . Sincerely, Manuelito Baum MD 02/03/2023 11:25:26 AM This report has been signed electronically.
--- NOTE | 2023-02-03 11:28 | OP.COLON_ITS ---
Patient Name: Crwo Harris Procedure Date: 02/03/2023 11:12 AM Date of : 1960 Age: 62 Procedure: Colonoscopy Indications: High risk colon cancer surveillance: Personal history of colonic polyps Providers: Manuelito Baum MD Medicines: Monitored Anesthesia Care Patient Profile: This is a 62 year old male. Refer to note in patient chart for documentation of history and physical. Last Colonoscopy: 3 years ago. Complications: No immediate complications. Procedure: Pre-Anesthesia Assessment: - Prior to the procedure, a History and Physical was performed, and patient medications and allergies were reviewed. The patient's tolerance of previous anesthesia was also reviewed. The risks and benefits of the procedure and the sedation options and risks were discussed with the patient. All questions were answered, and informed consent was obtained. Prior Anticoagulants: The patient has taken no previous anticoagulant or antiplatelet agents. After reviewing the risks and benefits, the patient was deemed in satisfactory condition to undergo the procedure. After I obtained informed consent, the scope was passed under direct vision. Throughout the procedure, the patient's blood pressure, pulse, and oxygen saturations were monitored continuously. The colonoscope was introduced through the anus and advanced to the cecum, identified by appendiceal orifice and ileocecal valve. The colonoscopy was performed without difficulty. The patient tolerated the procedure well. The quality of the bowel preparation was good. Scope In: 11:13:31 AM Scope Withdrawal Time 0 hours 6 minutes 0 seconds Scope Out: 11:23:02 AM Total Procedure Duration Time 0 hours 9 minutes 31 seconds Findings: The entire examined colon appeared normal on direct and retroflexion views. Impression: - The entire examined colon is normal on direct and retroflexion views. - No specimens collected. Recommendation: - Discharge patient to home. - Resume previous diet. - Continue present medications. - Repeat colonoscopy in 5 years for surveillance. Procedure Code(s): --- Professional --- 14648, Colonoscopy, flexible; diagnostic, including collection of specimen(s) by brushing or washing, when performed (separate procedure) Diagnosis Code(s): --- Professional --- Z86.010, Personal history of colonic polyps CPT copyright 2017 [employer]. All rights reserved. The codes documented in this report are preliminary and upon pathologist review may be revised to meet current compliance requirements. Manuelito Baum MD 02/03/2023 11:27:41 AM This report has been signed electronically. Number of Addenda: 0 Note Initiated On: 02/03/2023 11:12 AM
--- NOTE | 2023-02-03 11:29 | OP.CCLET_ITS ---
02/03/2023 Audelia Castro [address] [place] [address] Re : Colonoscopy procedure for Crow Martinezdy Dear Dr. Castro This procedure was performed on Friday, February 03, 2023. My impressions and recommendations are as follows: Impressions : - The entire examined colon is normal on direct and retroflexion views. - No specimens collected. Recommendations : - Discharge patient to home. - Resume previous diet. - Continue present medications. - Repeat colonoscopy in 5 years for surveillance. My findings are described in the full procedure note, which is enclosed. If I can be of further assistance, please feel free to contact me at Doctor phone number(s): , Work: . Sincerely, Manuelito Baum MD 02/03/2023 11:27:41 AM This report has been signed electronically.
== END 2023-02-03 12:20 | disposition home or self-care (01) ==
LOC: EN 09:18 → AC 09:23
PROVIDERS: PCP Internal Medicine; Referring Provider Internal Medicine; Visit Provider Surgery
PROC: 0DJD8ZZ Inspection of Lower Intestinal Tract, Via Natural or Artificial Opening Endoscopic (ICD-10-PCS; CPT 45378; principal; 2023-02-03 10:10)
DX: Z12.11 Encounter for screening for malignant neoplasm of colon (principal); Z86.010 Personal history of colon polyps; K25.9 Gastric ulcer, unspecified as acute or chronic, without hemorrhage or perforation; F17.200 Nicotine dependence, unspecified, uncomplicated; K29.71 Gastritis, unspecified, with bleeding; Z79.899 Other long term (current) drug therapy; I10 Essential (primary) hypertension; E78.00 Pure hypercholesterolemia, unspecified
CPT/HCPCS: 43239; 45378; 82962; 88305; 88342; J7120; J2405

== ENCOUNTER → 2023-02-14 | Outpatient (CLI) | payer BC, SELFPAY ==
--- NOTE | 2023-02-14 16:45 | MRI_ITS ---
We are attempting to reach an attending provider to discuss findings. An addendum with communication details will be sent when the communication is complete. STUDY: MRI BRAIN WITH AND WITHOUT CONTRAST REASON FOR EXAM: Male, 62 years old. Uncontrollable movement of left arm and leg x 3 wks-- ? Hanson''s Dz TECHNIQUE: Standardized multiplanar fat and water weighted pulse sequences were obtained. IV Yes YES was administered for the contrast portion of the examination. COMPARISON: None. FINDINGS: Normal size of the ventricles and extra-axial spaces for the patient''s age. Mild periventricular white matter ischemic change without mass effect or restricted diffusion. Subacute hemorrhagic infarct involving the right nasal ganglia and head of the caudate nucleus extending to the body of caudate Normal thalami. There is no extra-axial fluid accumulation. Normal flow voids within the major intracranial circulation suggesting patency by spin echo criteria. Normal venous enhancement. There is no enhancing intra-axial or extra-axial abnormality. Normal sella turcica, pituitary gland, infundibular stalk, optic chiasm and hypothalamus. Normal tectal plate and pineal gland. Normal midbrain, cookie and medulla. Normal cerebellum. Normal basal cisterns. Normal bilateral temporal bones. Normal bilateral internal auditory canals. No demonstrated orbital abnormality, within the constraints of a routine brain study. Normal visualized paranasal sinuses. Normal calvarium and skull base. Normal visualized soft tissue structures. Normal visualized upper cervical spine. MRI/Brain W/WO Contrast IMPRESSION: Subacute hemorrhagic infarct in the right basal ganglia involving the caudate nucleus Mild periventricular white matter ischemic changes.. Electronically Signed: Candelario Martínez MD at 17:45 EDT ,
[2023-02-14 16:56] LABS: CREATININE FINGERSTICK 1.2 mg/dL (0.70-1.30); EGFR FINGERSTICK > 60.0000 mL/min (>60)
== END | disposition home or self-care (01) ==
LOC: MRI 16:11
PROVIDERS: PCP Internal Medicine; Referring Provider Clinical Nurse Specialist; Visit Provider Clinical Nurse Specialist
DX: R25.8 Other abnormal involuntary movements (principal)
CPT/HCPCS: 70553; A9575

== ENCOUNTER 2023-02-20 19:01 | Inpatient (IN) | payer BC, SELFPAY ==
[2023-02-20 20:21] VITALS: BP 139/85; PULSE 85; RESP 18; TEMP 36.5; O2SAT 97; BMI 22.1
[2023-02-20 20:30] VITALS: O2SAT 97
[2023-02-20 20:35] VITALS: BP 139/85; PULSE 85; RESP 18; TEMP 36.5; O2SAT 97
[2023-02-20] MEDS: Atorvastatin Calcium 80 MG Tablet PO (22:10)
[2023-02-20] MEDS: Gabapentin 100 MG Capsule PO (22:15)
[2023-02-20] MEDS: clonazePAM 0.5 MG Tablet PO (22:15)
[2023-02-20 22:18] VITALS: BMI 22.1
[2023-02-20 23:16] LABS: Bedside Glucose 127 mg/dL (74-106)
[2023-02-21 05:57] LABS: Hemoglobin 14.7 g/dL (13.0-16.5); Mean Corp Hgb Conc 32.7 g/dL (32-36); Mean Corpuscular Hgb 29.9 pg (27.0-32.0); Mean Corpuscular Volume 91.5 fL (80-94); Platelet Count 168 K/mm3 (150-450); RBC Distribution Width CV 12.1 % (11.6-14.6); RBC Distribution Width SD 40.8 fl (35.1-43.9); Red Blood Count 4.92 M/mm3 (4.6-6.2); White Blood Count 6.6 K/mm3 (4.4-11.0)
[2023-02-21] MEDS: Gabapentin 100 MG Capsule PO ×2 (06:10→13:48)
[2023-02-21 06:31] LABS: Magnesium 2.2 mg/dL (1.6-2.6)
[2023-02-21 06:34] LABS: ALB/GLOB Ratio 0.9 RATIO (0.9-2.4); AST(SGOT) 20 U/L (15-37); Alanine Aminotransfer ALT/SGPT 26 U/L (16-61); Albumin, Serum 3.6 g/dL (3.2-5.0); Alkaline Phosphatase 60 U/L (45-117); Anion Gap 2 (5-15); BUN 25 mg/dL (7-18); BUN/Creat Ratio 21.9 RATIO (10-20); Calcium,Total 9.1 mg/dL (8.5-10.1); Chloride 109 mmol/L (98-107); Creatinine, Serum 1.14 mg/dL (0.70-1.30); EST Glomerular Filtration Rate 69 mL/min (>60); Est Glom Filt Rate - Afr Amer 83 mL/min (>60); Estimated Creatinine Clearance 62.78 ml/min; Globulin 3.9 g/dL (2.2-4.2); Glucose 108 mg/dL (74-106); Potassium 4.1 mmol/L (3.5-5.1); Protein, Total 7.5 g/dL (6.4-8.2); Sodium Level 140 mmol/L (136-145)
[2023-02-21 06:44] LABS: Phosphorus 4.1 mg/dL (2.5-4.9)
[2023-02-21 07:24] LABS: Bedside Glucose 122 mg/dL (74-106)
[2023-02-21 07:51] VITALS: BP 132/85; PULSE 88; RESP 16; TEMP 36.9; O2SAT 97
[2023-02-21 08:26] LABS: Hemoglobin A1c 8.8 % (3.8-5.6)
[2023-02-21] MEDS: Lisinopril 20 MG Tablet PO (08:41)
[2023-02-21] MEDS: Insulin Glargine-YFGN 100 UNIT/ML Pen 18 UNIT SC (08:41)
[2023-02-21] MEDS: Aspirin 81 MG TAB.CHEW PO (08:41)
[2023-02-21] MEDS: Multivitamins,Ther W-Minerals Tablet 1 TABLET PO (08:41)
[2023-02-21] MEDS: Glimepiride 2 MG Tablet PO (08:41)
[2023-02-21] MEDS: Pantoprazole Sodium 40 MG Tablet PO (08:41)
--- NOTE | 2023-02-21 10:03 | HP.PCM_ITS ---
[facility] - [facility] General Date of Admission: 02/20/23 Date of Service: 02/21/23 Chief Complaint: Post stroke debility HPI Narrative SYL AGUAYO, is a 62 YO M with a PMH of HTN, DM II (diagnosed in 2020), tobacco dependence, HLD colon polyps and BPH who presented to an ER on 02/15/23 after having an ABN OP MRI of the head. The MRI was ordered because he had been having ABN movements of the LUE/LLE for the preceding 2 weeks. MRI revealed a subacute intracerebral hemorrhage in the right caudate likely related to uncontrolled hypertension. He also had volume loss and evidence of deep vicente lacunar infarcts on the right and minimal asymmetric hemosiderin staining along the right putamen. He was admitted to the neurointensive care unit and started on Keppra for suspected focal motor seizures. Consult was obtained with neurosurgery. No operative intervention was required. NIH was 3 for limb ataxia of the left upper and left lower extremities and drift with the left arm. Lipid panel showed an LDL of 79 and a low HDL at 37 and he was taking Crestor at admission to the hospital. His hemoglobin A1c was uncontrolled at 9.8. An EEG showed no epileptiform activity but did show mild cortical dysfunction in the right frontotemporal region.. He continued to have hemiballism in the Left arm and leg and the neuro epilepsy service was consulted. Keppra was discontinued and he was placed on Klonopin 0.5 mg twice daily which he is to take for a total of 30 days. Abnormal movements should decrease/cease with resolution of the hemorrhage. He was stable for the duration of his admission at [facility]. While there he was seen by PT/OT?ST and acute inpt rehab was recommended at [facility] from his acute hospital stay. He was transferred to the acute inpt rehab unit at [facility] on 02/20/23 for 3 hours of therapy daily to restore function/indep endence at or near his level prior to the hemorrhagic CVA. He had not been taking his diabetic medications and insulin for 18 months until just recently when he saw Dr. Castro and was placed on Lantus and glimepiride. The endocrinology note from [facility] states he has no n europathy, retinopathy or kidney disease due to diabetes. He had also been noncompliant with his antihypertensive medication. He smokes 1 pack/day for 45 years now. Other medications that potentially can help control hemiballism include quetiapine, topiramate and valproate. Afebrile VSS-blood pressures are mildly elevated at 139/85. Maintaining appropriate oxygen saturation on RA Oral intake is good Blood sugar record was reviewed. At bedtime blood sugar was 127 and the FBS was 122 today. Discussed with nursing - no problems that need addressed Reviewed the PT/OT/ST notes Medication list reviewed. All lab from this morning was personally reviewed. CBC is normal. Sodium is 140 and the potassium is 4.1. BUN is 25 with a creatinine of 1.14 and a BUNs/creatinine ratio of 22. GFR is 69 which puts him into stage II chronic renal failure. Hemoglobin is 8.8. Calcium and phosphorus are within normal limits. [facility] Medical History (Updated 02/23/23 @ 11:[address] Brunilda Bey, ) Alcohol abuse Alcohol use BPH associated with nocturia High cholesterol History of stress test Hx of colonic polyps Hypertension Insulin dependent diabetes mellitus Leg cramps Prostate disease Smoker Wears dentures Wears glasses Wears partial dentures Home Medications saw palm 160 mg-vit E 100 unit-selen 100 mna-koua-sckfmb-pygeum tablet (Prostate Health) 1 tab PO DAILY supplement 12/16/22 [History Last Taken Unknown] cyclobenzaprine 10 mg tablet 10 mg PO Q8H PRN muscle spasm 02/02/23 [History Last Taken Unknown] glimepiride 1 mg tablet 2 mg PO DAILY diabetes 02/02/23 [History Last Taken Unknown] insulin glargine 100 unit/mL (3 mL) subcutaneous pen (Basaglar Tempo Pen (U-100) Insulin) 18 unit subcut .qam diabetes 02/02/23 [History Last Taken Unknown] lisinopril 10 mg tablet 20 mg PO DAILY blood pressure 02/02/23 [History Last Taken 02/03/23] magnesium 200 mg tablet 200 mg PO DAILY supplement 02/02/23 [History Last Taken Unknown] rosuvastatin 5 mg tablet (Crestor) 5 mg PO DAILY cholesterol 02/02/23 [History Last Taken Unknown] omeprazole 40 mg capsule,delayed release 40 mg PO DAILY gerd #60 caps 02/03/23 [Rx Last Taken Unknown] sucralfate 1 gram tablet (Carafate) 1 g PO BID gerd #30 tabs 02/03/23 [Rx Last Taken Unknown] aspirin 81 mg capsule 81 mg PO DAILY heart 02/20/23 [History Last Taken Unknown] atorvastatin 80 mg tablet (Lipitor) 80 mg PO QHS cholesterol 02/20/23 [History Last Taken Unknown] clonazepam 0.5 mg tablet 0.5 mg PO BID spastic arm 02/20/23 [History Last Taken Unknown] gabapentin 100 mg capsule 100 mg PO Q8H nerve pain 02/20/23 [History Last Taken Unknown] multivitamin-iron 9 mg-folic acid 400 mcg-calcium and minerals tablet (Thera M Plus (ferrous fumarate)) 1 tab PO DAILY vitamin 02/20/23 [History Last Taken Unknown] nicotine 21 mg/24 hr daily transdermal patch 1 patch transdermal Q24H smoking cessation 02/20/23 [History Last Taken Unknown] Allergy/AdvReac Type Severity Reaction Status Date / Time metformin AdvReac Mild Nausea Verified 02/20/23 22:31 Family History (Updated 02/21/23 @ 14:[address] Brunilda Bey DO) Father Diabetes Cancer Lung cancer Chronic alcoholism There is also alcoholism in others of his family, siblings Mother Diabetes Other Hypertension Surgical History History of colonoscopy Hx of tonsillectomy Social History (Updated 02/21/23 @ 14:[address] Brunilda Bey DO) household members: none number of children: 4 current occupation: works with sheet metal pets and animals: No Smoking Status: Heavy Smoker (>10/day) Tobacco: How many years used: 50 Electronic Cigarette Use: not used how long ago did patient quit smoking: He has not quit smoking. quit status: considering quitting counseling given: provider counseling and counseling >3 minutes alcohol intake: former details: Quit in December of 2022. Chronic alcoholic prior to that. + FH of alcoholism. substance use type: marijuana and other details: used to use Marijuana but, not recently ROS Constitutional Constitutional: Reports weakness and other Details: He had lost a lot of weight in the past few months due to uncontrolled DM but, since getting back on medication he has gained most of it back. ; Denies anorexia, chills, fever(s) or night sweats Eyes Eyes: Reports blurry vision and other Details: Blurry vision cleared up when he got back on insulin and glimepiride. ; Denies change in vision, eye pain or loss of vision ENT HEENT: Denies abnormal hearing, dysphagia, headache(s), hearing loss, nasal congestion or sore throat Cardiovascular Cardiovascular: Denies chest pain, dyspnea on exertion, edema, lightheadedness, orthopnea, palpitations, paroxysmal nocturnal dyspnea or syncope Respiratory/Chest Respiratory/Chest: Denies cough, dyspnea, shortness of breath at rest, shortness of breath with exertion or wheezing Gastrointestinal Gastrointestinal: Denies abdominal pain, constipation, diarrhea, dyspepsia, hematemesis, hematochezia, nausea or vomiting Genitourinary Genitourinary: Reports other Details: He had nocturia, urine urgency and frequency but, this has resolved since he started taking saw palmetto. ; Denies dysuria, hematuria, nocturia, urinary frequency, urinary hesitancy, urinary incontinence or urinary urgency Musculoskeletal Musculoskeletal: Denies back pain, joint pain, joint swelling or neck pain Integumentary Integumentary: Reports dry skin; Denies jaundice, rash or wounds Neurologic Neurologic: Reports confusion, focal weakness and other Details: Admits to problem with memory since the stroke and his thinking is not the same. He also has hemiballism since 2 weeks prior to the recent MRI that showed a Hemorrhagic CVA. ; Denies disequilibrium, dizziness, headache(s), paresthesias, seizures or tremo r(s) Psychiatric Psychiatric: Denies anxiety, depression, homicidal ideation or suicidal ideation Endocrine Endocrinology: Denies change in body appearance, polydipsia or polyuria Hematologic/Lymphatic Hematologic/Lymphatic: Denies easy bleeding, easy bruising or lymphadenopathy Allergic/Immunologic Allergic/Immunologic: Denies rhinitis, eczemia or asthma Vital Signs Vital Signs Vital Signs: 02/20/23 20:21 02/20/23 20:35 02/20/23 20:30 Temperature 97.7 F L 97.7 F L Temperature Source Temporal Temporal Pulse Rate 85 85 Respiratory Rate 18 18 Respiratory Effort Respiratory Depth Respiratory Pattern Blood Pressure 139/85 H 139/85 H Blood Pressure Mean 103 103 Blood Pressure Source Monitor Monitor Blood Pressure Position Semi-Fowlers Semi-Fowlers Blood Pressure Location Right Arm Right Arm Pulse Ox 97 97 97 Oxygen Delivery Method Room Air Room Air Room Air 02/20/23 22:15 02/21/23 07:51 02/21/23 08:28 Temperature 98.5 F Temperature Source Oral Pulse Rate 88 Respiratory Rate 16 Respiratory Effort Normal Non-Labored Respiratory Depth Normal Respiratory Pattern Normal Blood Pressure 132/85 H Blood Pressure Mean 100 Blood Pressure Source Monitor Blood Pressure Position Semi-Fowlers Blood Pressure Location Right Arm Pulse Ox 97 Oxygen Delivery Method Room Air Room Air Room Air 02/21/23 08:48 Temperature Temperature Source Pulse Rate Respiratory Rate Respiratory Effort Normal Non-Labored Respiratory Depth Normal Respiratory Pattern Normal Blood Pressure Blood Pressure Mean Blood Pressure Source Blood Pressure Position Blood Pressure Location Pulse Ox Oxygen Delivery Method Room Air Weight Weight: 149 lb 7.574 oz Body Mass Index (BMI) 22.1 Indicators for Scoring Admitted with or Primary Diagnosis of CVA/Stroke: Yes Hx of CVA/Stroke: No Modified Brandt Score MRS Score at time of Evaluation: 4-Moderate/severe disability NIHSS NIHSS 1a. Level of Consciousness: Alert; keenly responsive 1b. LOC Questions: Answers BOTH questions correctly. 1c. LOC Commands: Performs both tasks correctly. 2. Best Gaze: Normal 3. Visual: No visual loss 4. Facial Palsy: Normal symmetrical movements 5a. Left Arm: No drift; arm holds 90 (or 45) degrees for full 10 seconds 5b. Right Arm: No drift; arm holds 90 (or 45) degrees for full 10 seconds 6a. Left Leg: No drift; leg holds 30-degree position for full 5 seconds 6b. Right Leg: No drift; leg holds 30-degree position for full 5 seconds 7. Limb Ataxia: Present in 2 limbs 8. Sensory: Normal; no sensory loss 9. Best Language: No aphasia; normal 10. Dysarthria: Cocw-rm-ttlokfzf dysarthria; 11. Extinction and Inattention: No abnormality Total: 3 Stroke Questions Stroke Team Activated: No Physical Exam Const alert, oriented x3 and no apparent distress General Appearance: cooperative HEENT normocephalic and head/scalp atraumatic Mouth: dry mucous membranes Eyes PERRL and EOMs intact bilaterally Neck No nuchal rigidity, supple, no JVD and no carotid bruits General: trachea midline Resp clear to auscultation bilaterally Effort and Inspection: Negative for tachypneic, labored or uses accessory muscles Auscultation: diminished lung sounds Cardio regular rate, regular rhythm, S1 normal heart sound, S2 normal heart sound, no murmurs, no rub and no gallops Cardio Narrative: No ectopy, heart sounds are somewhat distant. GI normal to inspection, nondistended, normoactive bowel sounds, soft to palpation and non-tender GI Narrative: No guarding with palpation Extremity no calf tenderness General Extremity: Negative for clubbing or edema Skin no jaundice General Skin Exam: no breakdown Rashes: no rashes Neuro CN's II-XII intact bilaterally Results Lab / Micro Data 02/21/23 05:35 02/21/23 05:35 Labs: Laboratory Results - last 24 hr 02/20/23 22:17: POC Glucose 127 H 02/21/23 05:35: WBC 6.6, RBC 4.92, Hgb 14.7, Hct 45.0, MCV 91.5, MCH 29.9, MCHC 32.7, RDW Std Deviation 40.8, RDW Coeff of [place] 12.1, Plt Count 168, MPV 11.0, Sodium 140, Potassium 4.1, Chloride 109 H, Carbon Dioxide 29.0, Anion Gap 2 L, BUN 25 H, Creatinine 1.14, Estim Creat Clear Calc 62.78, Est GFR (MDRD) Af Amer 83, Est GFR (MDRD) Non-Af 69, BUN/Creatinine Ratio 21.9 H, Glucose 108 H, He moglobin A1c 8.8 H, Calcium 9.1, Phosphorus 4.1, Magnesium 2.2, Total Bilirubin 0.90, AST 20, ALT 26, Alkaline Phosphatase 60, Total Protein 7.5, Albumin 3.6, Globulin 3.9, Albumin/Globulin Ratio 0.9 02/21/23 06:27: POC Glucose 122 H Assessment & Plan Assessment/Plan (1) Debility: (2) Hemorrhagic cerebrovascular accident (CVA): (3) Left-sided weakness: (4) Cognitive dysfunction due to acute cerebrovascular accident (CVA): (5) Hemiballism: (6) Tobacco abuse: (7) Alcohol abuse: (8) Hyperlipidemia: QUALIFIERS: Hyperlipidemia type: unspecified Qualified Code(s): E78.5 - Hyperlipidemia, unspecified (9) HTN (hypertension): QUALIFIERS: Hypertension type: primary hypertension Qualified Code(s): I10 - Essential (primary) hypertension (10) DM neuro manif type II, uncontrolled: (11) History of colon polyps: (12) Lacunar infarction: PLAN: These are old. PLAN: Plan PLAN PT for gait stability OT for ADL's ST for evaluation Analgesics as needed Bowel protocol Fall precautions Assess for Anxiety/Depression GI prophylaxis with pantoprazole DVT prophylaxis with SCDs and BOB brianne - he was on Lovenox at the previous hospital and then had thrombocytopenia and it was discontinued. No hx of DVT or PE. Follow up with Dr. Catsro and neurology (movement disorder service) following DC from [facility] AM lab including CMP, CBC, Mag and Phos - all personally reviewed. DC the gabapentin Klonopin 0.5 mg p.o. now and increase Klonopin to 1 mg p.o. every 12 hours. Encouraged him to increase his fluid intake Charges/Coding Visit Charges Inpatient E&M: 91976 Init Hosp L3
[2023-02-21] MEDS: clonazePAM 0.5 MG Tablet PO ×2 (10:21→14:58)
--- NOTE | 2023-02-21 11:27 | REHABEVAL_ITS ---
Admission Information Primary Diagnosis:: Post stroke debility Status Changes from Prescreening?: No changes Identified Actual Problem List:: Cognitve Impr/Memory Loss, Alteration in Sleep, Mobility Impaired, Self Care Deficit, Know.Dfct/Disease Process, BP, Hypertension, Fluid Change-Dehydration and Alteration-Leisure Activ. Potential Problem List:: DVT, Bleeding, Infection, UTI, Aspiration, Falls, Skin Integrity and Depression Risk of Complications DVT: BOB Hose and Sequential Compression Device Bleeding: Monitor Lab Values, Nursing to Teach Precautions for anti-coagulation therapy., Wound, if applicable, to be assessed every shift. and Stroke patients assessed for lethargy or change in status. Infection: Clinical Staff to Monitor for S/S of infection: and S/S of infection include fever, redness, warmth, etc. Urinary Tract Infection: Monitor for frequency, burning, discomfort, or incontinence. and Nursing will obtain urine sample for urinalysis and C&S when ordered. Aspiration: Clinical staff will monitor for coughing, drooling, congestion., Speech will evaluate swallowing and dsyphasia. and Nursing will monitor patient swallowing during meals. Falls: Patient will be evaluated for Fall Precautions and Patient will be placed on Fall Precautions as indicated per protocol. Skin Breakdown: Nursing will assess skin daily using assessment tool. and Nursing will place on Skin Breakdown Precautions as indicated. Pain: Clinical staff will assess patient's pain level per protocol., Medications will be given, if needed, and the pain level reassessed. and Other methods: Massage, distraction, decrease stimulus, etc. used PRN. Plan of Care Patient requires physician specializing in physical medicine and rehab oversight to provide close medical supervision of rehab issues including: Pain Management, Sleep Problems, Bowel and Bladder, Medical and co-morbidity Management, DVT prophylaxis, Rehabilitation Leadership and Coordination of treatment team Patient needs Physical Therapy: For a minimum of 1 hour and At least 5 out of 7 days Patient needs Physical Therapy to improve:: Mobility, Strengthening, Transfers, Stretching, ROM, Endurance, Stairs, Gait and Balance Patient needs Occupational Therapy: For a minimum of 1 hour and At least 5 out of 7 days Patient needs Occupational Therapy to improve ADL's incl.: Eating, Grooming, Bathing, Dressing, Toileting, Toilet transfers, Community Reintegration, Higher functioning activities, Household tasks, Adaptive Equipment, Splinting and Other activities as determined Patient requires speech therapy: For a minimum of 1 hour and At least 5 out of 7 days Patient requires speech therapy for: Swallowing, Cognition, Language Skills and Compensatory Strategies Patient requires 24/7 Rehabilitation Nursing for: Pain Issues, Identifying and preventing risk factors, Monitoring and reporting current medical conditions, Assisting with ambulation, transfer, and all ADL's, Teaching patients about disease process and medications, Family teaching, Providing safe environment, Bowel and Bladder Issues, Skin integrity and Medication Management Patient needs Chief Technician X Ray/ Case Management for: Discharge Planning, Arranging Home Equipment or Services and Family Interventions Patient needs Dietary and Nutrition Services for: Adequate Nutrition, Nutritional Supplements and Nutritional Education Goals Patient will remain: free from falls and or injury at time of discharge. Patient will perform bed mobility at: MOD I level of assist. Patient will complete transfers from bed to chair at: MOD I level of assist. Patient will ambulate: with LRD and - (500 feet at mod I) Patient will complete upper body dressing at: MOD I level of assist. Patient will complete lower body dressing at: MOD I level of assist. Patient will complete toileting at: MOD I level of assist. Patient will perform bathing at: MOD I level of assist. Patient will complete grooming at: MOD I level of assist. Patient will complete home management skills at: MOD I level of assist. Patient will achieve: - (1 curb step and 1 flight of stairs with handrails at mod I) Patient will have pain level of: of 3 or less Patient's skin will: remain intact Patient will receive: adequate nutrition. Discharge Planning Pt Prognosis for Sig. Practical Improv. w/in Reasonable Time: Good Estimated Length of stay (days): 28 Anticipated D/C Destination: Home with Outpt Therapy Was Preadmission Assessment Accurate?: Yes
[2023-02-21 11:28] LABS: Bedside Glucose 114 mg/dL (74-106)
[2023-02-21 16:30] LABS: Bedside Glucose 101 mg/dL (74-106)
--- NOTE | 2023-02-21 18:30 | NURSING ---
BUTTERMAKER CONTINUOUS CHURN made this RN aware that pt girlfriend was shutting off PA and taking pt outside without asking. The nurse made her aware that this can not happen and she needs to call someone to turn off PA and we need to be notified that he is going outside. He was also informed that he is not to be smoking while outside since he has a nicotine patch on.
--- NOTE | 2023-02-21 18:30 | NURSING ---
Patient requesting to go outside numerous times on this shift w/ friend. Patient assisted to wheelchair advised of policy within hospital. Reminded not to transfer out of chair without staff. Patient came back to floor w/ strong odor of cigarette smoke. RN notified. Advised patient he should not be smoking w/ nicotine patch or at all due to hospital policy. at a later time Patient was trying to self transfer and Bed alarm was alerting I responded to this alarm and seen that significant other was trying to shut off alarms and transfer patient. Advised that it is against policy for her to be shutting off alarm and transferring patient. Patient then requested to go outside this time w/ Significant other. Significant other noted to be agitated about policy. Patient once again reminded of policies in place such as no transferring w/o staff. Also reminded that he should not be smoking. Patient came back to floor at later time w/ strong odor of cigarette smoke again.
[2023-02-21 19:22] VITALS: BP 127/79; PULSE 18; RESP 18; TEMP 36.8; O2SAT 93
[2023-02-21] MEDS: Atorvastatin Calcium 80 MG Tablet PO (20:10)
[2023-02-21] MEDS: clonazePAM 0.5 MG Tablet 1 MG PO (20:11)
[2023-02-21 20:14] VITALS: O2SAT 97
[2023-02-21 21:50] LABS: Bedside Glucose 114 mg/dL (74-106)
[2023-02-22 05:43] VITALS: BMI 22.1
[2023-02-22 06:30] LABS: Bedside Glucose 144 mg/dL (74-106)
[2023-02-22 07:23] VITALS: O2SAT 96
[2023-02-22 07:41] VITALS: BP 137/82; PULSE 82; RESP 16; TEMP 36.6; O2SAT 93
[2023-02-22] MEDS: Aspirin 81 MG TAB.CHEW PO (08:47)
[2023-02-22] MEDS: Glimepiride 2 MG Tablet PO (08:47)
[2023-02-22] MEDS: Multivitamins,Ther W-Minerals Tablet 1 TABLET PO (08:47)
[2023-02-22] MEDS: Pantoprazole Sodium 40 MG Tablet PO (08:48)
[2023-02-22] MEDS: Insulin Glargine-YFGN 100 UNIT/ML Pen 18 UNIT SC (08:48)
[2023-02-22] MEDS: Lisinopril 20 MG Tablet PO (08:48)
[2023-02-22] MEDS: clonazePAM 0.5 MG Tablet 1 MG PO ×2 (08:52→21:18)
[2023-02-22 11:32] LABS: Bedside Glucose 110 mg/dL (74-106)
[2023-02-22 16:20] LABS: Bedside Glucose 135 mg/dL (74-106)
[2023-02-22 19:26] VITALS: BP 133/86; PULSE 71; RESP 14; TEMP 36.5; O2SAT 98
[2023-02-22] MEDS: Atorvastatin Calcium 80 MG Tablet PO (21:18)
[2023-02-22 22:26] LABS: Bedside Glucose 138 mg/dL (74-106)
[2023-02-23 06:24] LABS: Bedside Glucose 127 mg/dL (74-106)
[2023-02-23 07:22] VITALS: BP 120/78; PULSE 64; RESP 16; TEMP 36.4; O2SAT 97
[2023-02-23] MEDS: Lisinopril 20 MG Tablet PO (08:15)
[2023-02-23] MEDS: Multivitamins,Ther W-Minerals Tablet 1 TABLET PO (08:15)
[2023-02-23] MEDS: Glimepiride 2 MG Tablet PO (08:15)
[2023-02-23] MEDS: clonazePAM 0.5 MG Tablet 1 MG PO ×2 (08:15→20:50)
[2023-02-23] MEDS: Aspirin 81 MG TAB.CHEW PO (08:15)
[2023-02-23] MEDS: Pantoprazole Sodium 40 MG Tablet PO (08:15)
[2023-02-23] MEDS: Insulin Glargine-YFGN 100 UNIT/ML Pen 18 UNIT SC (08:16)
--- NOTE | 2023-02-23 11:07 | PCM.PROGNOTE ---
Subjective Subjective Randall was seen on team rounds today. No family was present and we could not reach anyone by phone. I did speak to his daughter Josiah when she came up to visit later in the day. Afebrile VSS-blood pressures are for the most part within goal. Maintaining appropriate oxygen saturation on RA Oral intake is good. The blood sugar record was reviewed. All blood sugars for the past 10 Accu-Cheks have been very good with no hypoglycemia. Discussed with nursing - Day nurses saying he is impulsive and setting off his alarms trying to get up by himself. His GF visits and takes him outside and nursing suspects he is smoking outside. AUTOMATION CONSULTANT found him in the hallway at the coffee machine with assist. Reviewed the PT/OT/ST notes Medication list reviewed. Randall seems more groggy since the Klonopin was increased. He seems to think there has been no improvement in the abnormal movements with Klonopin but I notice a marked difference when I am examining him. He seems to have increased abnormal movement if he gets anxious or he thinks someone is watching him. While we were talking to him in his room on rounds his left foot moved continuously but no violent jerking movements. He had some jerking of his left upper extremity but considerably less than when I examined him 2 days ago. He denies shortness of breath, lightheadedness, chest pain, palpitations, abdominal pain, dysuria and calf pain. Objective Data Objective Data Vital Signs: Vital Signs Temp Pulse Resp BP Pulse Ox O2 Del Method 97.5 F L 64 16 120/78 97 Room Air 02/23/23 07:22 02/23/23 07:22 02/23/23 07:22 02/23/23 07:22 02/23/23 07:22 02/23/23 07:22 Oxygen Delivery Method Room Air Weight: 149 lb 7.574 oz Body Mass Index (BMI) 22.1 Intake & Output: Intake and Output for Last 24 Hours 02/21/23 02/22/23 02/23/23 23:59 23:59 23:59 Intake Total 1680 / 1680 1000 / 1000 720 / 720 Output Total 1113 / 1113 800 / 800 900 / 900 Balance 567 / 567 200 / 200 -180 / -180 Lab / Micro Data 02/21/23 05:35 02/21/23 05:35 Labs: Laboratory Results - last 24 hr 02/22/23 11:15: POC Glucose 110 H 02/22/23 15:59: POC Glucose 135 H 02/22/23 22:08: POC Glucose 138 H 02/23/23 06:05: POC Glucose 127 H Physical Exam Const Constitutional Narrative: Somewhat groggy but, able to answer questions and he has been able to do therapy. General Appearance: cooperative Resp clear to auscultation bilaterally Effort and Inspection: Negative for tachypneic or labored Auscultation: diminished lung sounds Cardio regular rate, regular rhythm, no murmurs and no gallops GI normal to inspection, nondistended, normoactive bowel sounds, soft to palpation and non-tender Extremity no calf tenderness General Extremity: Negative for edema Skin General Skin Exam: no breakdown Rashes: no rashes Assessment & Plan Assessment/Plan (1) Debility: (2) Hemorrhagic cerebrovascular accident (CVA): (3) Left-sided weakness: (4) Cognitive dysfunction due to acute cerebrovascular accident (CVA): (5) Hemiballism: (6) Tobacco abuse: (7) Alcohol abuse: (8) Hyperlipidemia: QUALIFIERS: Hyperlipidemia type: unspecified Qualified Code(s): E78.5 - Hyperlipidemia, unspecified (9) HTN (hypertension): QUALIFIERS: Hypertension type: primary hypertension Qualified Code(s): I10 - Essential (primary) hypertension (10) DM neuro manif type II, uncontrolled: (11) History of colon polyps: (12) Lacunar infarction: PLAN: Plan 1. Continue therapy 2. Add sertraline 50 mg p.o. daily to the current drug regimen. 3. will increase the Klonopin to 1 mg PO Q 8 hours but, I am afraid it will make him too sleepy......We might have to live with some abnormal movements.....he lived with this for 2 weeks prior to seeking any help. I am also fearful that with his addictive tendencies he may trade addiction to ETOH and become a benzo addict. This medication will need to be tapered off and not abruptly withdrawn and he will need regular follow up with a PCP tot do this. Hopefully when the Sertraline kicks in we will be able to decrease the Klonopin.....when he is stressed the movements get worse. Gabapentin did not help. If he gets to obtunded with the Klonopin will try Depakote or Seroquel which also can help to control hemiballism. I will avoid Topamax since he has recently lost a lot of weight. Charges/Coding Visit Charges Inpatient E&M: 32854 Subs Hosp L2
[2023-02-23] MEDS: Sertraline 50 MG Tablet PO (12:58)
--- NOTE | 2023-02-23 13:26 | CASEMGMT ---
Social Work IDT met with patient for Team meeting. Attempted to contact children, but no answer. Discussed patient's progress in PT/OT/ST/SN. Educated to [place] [employer] insurance with [employer] 02/23 and continued stay is not guaranteed with each review. Pt has poor safety awareness and cravings for smoking has reduced. SW will assist with DC planning as further progress is made. Will ReTeam weekly. YARELIS CochranW
--- NOTE | 2023-02-23 15:02 | CASEMGMT ---
Social Work Attempted to complete advanced directives but dtr's phone keeps ringing and son's phone number is not accurate, plus needs addresses. SW left contact information with pt for children to call this worker. Stacey Shaw, YARELIS STEPHENSONW
[2023-02-23 19:27] VITALS: BP 130/79; PULSE 80; RESP 17; TEMP 36.5; O2SAT 94
[2023-02-23] MEDS: Atorvastatin Calcium 80 MG Tablet PO (20:50)
[2023-02-23 22:00] VITALS: PULSE 83; RESP 17
[2023-02-23 22:17] LABS: Bedside Glucose 106 mg/dL (74-106)
[2023-02-24 06:33] LABS: Bedside Glucose 112 mg/dL (74-106)
[2023-02-24 07:29] VITALS: BP 134/87; PULSE 73; RESP 16; TEMP 36.7; O2SAT 94
[2023-02-24] MEDS: Divalproex Sodium 250 MG Tablet PO ×2 (08:29→17:19)
[2023-02-24] MEDS: Pantoprazole Sodium 40 MG Tablet PO (08:29)
[2023-02-24] MEDS: Sertraline 50 MG Tablet PO (08:30)
[2023-02-24] MEDS: Insulin Glargine-YFGN 100 UNIT/ML Pen 18 UNIT SC (08:30)
[2023-02-24] MEDS: Lisinopril 20 MG Tablet PO (08:30)
[2023-02-24] MEDS: Aspirin 81 MG TAB.CHEW PO (08:30)
[2023-02-24] MEDS: Multivitamins,Ther W-Minerals Tablet 1 TABLET PO (08:30)
[2023-02-24] MEDS: Glimepiride 2 MG Tablet PO (08:30)
[2023-02-24] MEDS: clonazePAM 0.5 MG Tablet 1 MG PO ×2 (08:32→21:41)
[2023-02-24] MEDS: Acetaminophen 500 MG Tablet 1000 MG PO (10:54)
[2023-02-24 16:41] LABS: Bedside Glucose 84 mg/dL (74-106)
[2023-02-24] MEDS: Atorvastatin Calcium 80 MG Tablet PO (21:41)
[2023-02-24 22:00] VITALS: BP 133/80; PULSE 73; RESP 18; TEMP 36.7; O2SAT 95; O2SAT 96
[2023-02-25 07:00] LABS: Bedside Glucose 99 mg/dL (74-106)
[2023-02-25 08:00] VITALS: BP 134/80; PULSE 74; RESP 17; TEMP 36.7; O2SAT 98
[2023-02-25] MEDS: Aspirin 81 MG TAB.CHEW PO (08:41)
[2023-02-25] MEDS: Sertraline 50 MG Tablet PO (08:42)
[2023-02-25] MEDS: Multivitamins,Ther W-Minerals Tablet 1 TABLET PO (08:42)
[2023-02-25] MEDS: Lisinopril 20 MG Tablet PO (08:42)
[2023-02-25] MEDS: Pantoprazole Sodium 40 MG Tablet PO (08:42)
[2023-02-25] MEDS: Divalproex Sodium 250 MG Tablet PO ×2 (08:43→16:51)
[2023-02-25] MEDS: Glimepiride 2 MG Tablet PO (08:43)
[2023-02-25] MEDS: Insulin Glargine-YFGN 100 UNIT/ML Pen 18 UNIT SC (08:44)
[2023-02-25] MEDS: clonazePAM 0.5 MG Tablet 1 MG PO ×2 (08:48→21:32)
[2023-02-25 17:21] LABS: Bedside Glucose 123 mg/dL (74-106)
--- NOTE | 2023-02-25 19:56 | CASEMGMT ---
Social Work SW received notice that patient's last covered day is 02/26/23 and would need discharged on Monday. SW discussed with patient who reports he is ready and able to go home. SW called daughter to confirm but was not able to leave a voicemail, called multiple times. Plan: Patient to discharge home Monday unless different option requested. Barbara Patel [employer], MANAGER OF CHANGE
[2023-02-25] MEDS: Atorvastatin Calcium 80 MG Tablet PO (21:29)
[2023-02-25] MEDS: Acetaminophen 500 MG Tablet 1000 MG PO (21:36)
[2023-02-25 21:40] VITALS: BP 160/50; PULSE 71; RESP 15; TEMP 36.8; O2SAT 96
[2023-02-25 22:00] VITALS: PULSE 71; RESP 16; O2SAT 96
[2023-02-26 06:27] LABS: Bedside Glucose 97 mg/dL (74-106)
[2023-02-26 07:26] VITALS: BP 143/75; PULSE 77; RESP 17; TEMP 36.4; O2SAT 92
[2023-02-26] MEDS: Glimepiride 2 MG Tablet PO (07:47)
[2023-02-26] MEDS: Lisinopril 20 MG Tablet PO (07:47)
[2023-02-26] MEDS: Multivitamins,Ther W-Minerals Tablet 1 TABLET PO (07:47)
[2023-02-26] MEDS: Aspirin 81 MG TAB.CHEW PO (07:47)
[2023-02-26] MEDS: Sertraline 50 MG Tablet PO (07:47)
[2023-02-26] MEDS: Pantoprazole Sodium 40 MG Tablet PO (07:48)
[2023-02-26] MEDS: Insulin Glargine-YFGN 100 UNIT/ML Pen 18 UNIT SC (07:48)
[2023-02-26] MEDS: Divalproex Sodium 250 MG Tablet PO ×2 (07:48→16:34)
[2023-02-26] MEDS: clonazePAM 0.5 MG Tablet 1 MG PO ×2 (07:51→21:34)
--- NOTE | 2023-02-26 10:20 | NURSING ---
Per Dr. Bey, she is okay if patient discharges home tomorrow as long as there is someone there with him. Spoke with patient's daughter Josiah about discharge plans. She is okay with patient discharging home. Spoke with girlfriend Armida. Armida stated she will be able to get medications ready and stay with him majority of the time. She will be in tomorrow for family training around 1:30pm. Patient aware of discharge plans. Everyone in agreement. Social Work updated as well.
[2023-02-26 17:11] LABS: Bedside Glucose 150 mg/dL (74-106)
[2023-02-26 19:01] VITALS: BP 136/84; PULSE 82; RESP 16; TEMP 36.7; O2SAT 95
[2023-02-26 21:22] VITALS: PULSE 80; RESP 16; O2SAT 95
[2023-02-26] MEDS: Atorvastatin Calcium 80 MG Tablet PO (21:34)
[2023-02-27 06:30] LABS: Bedside Glucose 103 mg/dL (74-106)
[2023-02-27 07:03] VITALS: BP 137/91; PULSE 78; RESP 16; TEMP 35.8; O2SAT 95
[2023-02-27] MEDS: Insulin Glargine-YFGN 100 UNIT/ML Pen 18 UNIT SC (07:44)
[2023-02-27] MEDS: Multivitamins,Ther W-Minerals Tablet 1 TABLET PO (07:45)
[2023-02-27] MEDS: Lisinopril 20 MG Tablet PO (07:45)
[2023-02-27] MEDS: Pantoprazole Sodium 40 MG Tablet PO (07:45)
[2023-02-27] MEDS: Sertraline 50 MG Tablet PO (07:45)
[2023-02-27] MEDS: Glimepiride 2 MG Tablet PO (07:45)
[2023-02-27] MEDS: Divalproex Sodium 250 MG Tablet PO (07:46)
[2023-02-27] MEDS: Aspirin 81 MG TAB.CHEW PO (07:46)
[2023-02-27] MEDS: clonazePAM 0.5 MG Tablet 1 MG PO (07:49)
--- NOTE | 2023-02-27 09:21 | PCM.DC ---
Discharge Instructions Diet Discharge Diet: Low fat / Low cholesterol and Carb Control Diet Activity Discharge Activity: May Not Drive, May Shower and Use Walker (Use a walker or a straight cane when ambulating outside of the house, especially on uneven surfaces.) Weight Bearing Status: Full weight bearing Additional Activity Instructions:: You can not drive until released by the neurologist to drive. Dressing / Incision Call your doctor if you observe: Fever of 101 or Higher, Shortness of breath, Dizziness, Fainting spells, Swelling in the ankles, Chest pain, Increased palpitations (irregular heartbeat) and Calf discomfort Follow Up Care Please Follow Up With: Audelia Castro MD When: Dr. Castro on 03/[address] Chelsie Simmons on 03/31/23. Marie Escalera on 03/28/23. Test Results: Test results from this visit will be discussed in further detail at your follow-up appointment, if applicable. Pending Tests Upon Discharge: none Discharge Plan Admission Admit Date/Time: 02/20/23 19:01 Primary Reason for Your Visit: post stroke debility Attending Provider: Brunilda Bey Primary Care Provider: Audelia Castro Instructions Patient Instructions: Hemorrhagic Stroke ..., Stroke and Heart Disease, COPD Quit Smoking, Symptoms of Stroke, Hypertension Stroke Link, Coping with Smoking Withdrawal, Health Effects of Smoking, Discharge Instructions for Stroke Additional Instructions / Restrictions: 1. There are 2 kinds of stroke. The most common type of stroke is an ischemic stroke. This is when you have atherosclerosis or blood clots and blood flow to a certain area of your brain is cut off. This type of stroke does not show up on a CT scan of the head for 24 to 48 hours. About 15% of strokes are due to hemorrhage or bleeding into the brain. The strokes show up on a CAT scan immediately. The most common cause of this type of stroke is uncontrolled hypertension. You had a hemorrhagic stroke. 2. You have multiple risk factors for strokes/heart disease and these include smoking, being a man over the age of 45, high cholesterol, hypertension and diabetes mellitus. The diabetes has not been well controlled and your blood pressure was also not controlled. To prevent further strokes and heart attacks you should keep these goals in mind: Hemoglobin A1c less than 7, blood pressure less than 130/80, LDL (bad cholesterol) 70 or less. If you can maintain these goals and quit smoking your risk for further strokes and heart attacks will significantly decrease. Taking your medication as instructed every day is Critical in controlling BP, high blood pressure and Diabetes. 3. The abnormal movements you are having is called hemiballism. This occurs when you have a stroke deep in the brain. The EEG did not show any seizure activity. These abnormal movements should go away in approximately 4 to 6 weeks. You are on 2 medications to control these abnormal movements and the medications are Klonopin and Depakote. These medications can make you sleepy. The Klonopin is an addictive medication and if you suddenly stop it you will go into withdrawal. It will need to be tapered off when the abnormal movements stop. Although you still have the abnormal movements, they are much better than at admission. When you get anxious the movements increase and they also increase when you feel stressed. 4. Smoking is an addiction, just like alcohol. It is difficult to quit any addiction and often you need help to quit. You are currently on a nicotine patch. It will be tapered off. Recommendations are to use a 21 mg patch for 4 weeks then a 14 mg patch for 2 weeks and finally as 7 mg patch for 2 weeks. You should not smoke while you are on the patch. If you find you are having craving for cigarettes I recommend you call the smoking cessation counselor at [facility] to receive additional help and counseling. You can call the hospital at [phone] and ask for the smoking cessation coordinator. 5. Good lucchas Pereira. You will be getting OP therapy for the stroke and I hope you have continued improvement and success in managing you diabetes, high blood pressure and high cholesterol. If you or your family has any questions after you leave rehab please do not hesitate to call me. OFFICE: [phone] CELL: [phone] Discharge Orders/Prescriptions Prescriptions: New lisinopril 20 mg Tablet 20 mg PO DAILY Qty: 30 0RF clonazepam 0.5 mg Tablet 1 mg PO BID Qty: 42 0RF glimepiride 2 mg Tablet 2 mg PO BREAKFAST Qty: 30 0RF divalproex 250 mg Tablet,Delayed Release (Dr/Ec) 250 mg PO BIDCM Qty: 60 0RF acetaminophen 500 mg Tablet 1,000 mg PO Q8H PRN PRN (Reason: Pain 1-10 Or Fever) 0RF sertraline 100 mg tablet 100 mg PO DAILY Qty: 30 0RF nicotine 14 mg/24 hr patch 24 hour 1 patch transdermal DAILY Qty: 14 0RF nicotine 7 mg/24 hr patch 24 hour 1 patch transdermal Q24H Qty: 7 0RF Continued Prostate Health 160-100-100 mg-unit-mcg tablet 1 tab PO DAILY Thera M Plus (ferrous fumarat) 9 mg iron-400 mcg tablet 1 tab PO DAILY aspirin 81 mg capsule 81 mg PO DAILY atorvastatin [Lipitor] 80 mg tablet 80 mg PO QHS Qty: 30 0RF omeprazole 40 mg capsule,delayed release(DR/EC) 40 mg PO DAILY Qty: 30 1RF nicotine 21 mg/24 hr patch 24 hour 1 patch transdermal Q24H Qty: 21 0RF insulin glargine [Basaglar Tempo Pen(U-100)Insln] 100 unit/mL (3 mL) insulin pen 18 unit subcut .qam Qty: 2 0RF Discontinued lisinopril 10 mg tablet 20 mg PO DAILY glimepiride 1 mg tablet 2 mg PO DAILY cyclobenzaprine 10 mg tablet 10 mg PO Q8H PRN (Reason: muscle spasm) rosuvastatin [Crestor] 5 mg tablet 5 mg PO DAILY magnesium 200 mg tablet 200 mg PO DAILY sucralfate [Carafate] 1 gram tablet 1 g PO BID Qty: 30 0RF Hold Instructions: Ordered gabapentin 100 mg capsule 100 mg PO Q8H Rx Instructions: for 30 days clonazepam 0.5 mg tablet 0.5 mg PO BID Rx Instructions: for 53 doses Referrals / Follow Up: chelsie simmons [Other] - 03/31/23 3:40 pm (Neuro ) salena escalera [Other] - 03/28/23 9:00 am (cerebrovascular ) Audelia Castro MD [Primary Care Provider] - 03/13/23 2:00 pm Disposition Disposition (needs filled in before D/C Order can be placed): Home, Self Care
--- NOTE | 2023-02-27 14:00 | NURSING ---
Discharge to home, girlfriend did family training and both him and her agreed with dc instructions.
--- NOTE | 2023-02-27 14:47 | CASEMGMT ---
Social Work YAMIL referred to multiple [facility] agencies d/t insurance, including [facility]. Intake explained pt has to pay 100% until deductible is met, which is not close to being met, and provided pricing. SW phoned dtr to follow up about DC plans. Confirmed between children and SO, pt will have care at home. Educated to [facility] lack of coverage. Offered OP therapy at [email or web address] for PT/OT/ST, which is half the cost of [facility]. Dtr agrees and family can transport pt. Dtr provided SO phone number for [facility] to call to schedule while dtr is on vacation this week. SW spoke with pt and SO at bedside to update and all in agreement. Faxed referral to [facility] for PT. Plan: DC home with SO assistance 02/27, [facility] PT/OT/ST YARELIS CochranW
--- NOTE | 2023-02-28 12:15 | EX.DISCHREH ---
Providers Date of Admission: 02/20/23 Date of Discharge: 02/27/23 Primary Care Physician: Dr. Audelia Castro MD Reason For Visit: CEREBAL INFARCT Diagnosis Discharge Diagnosis (1) Debility: Status: Acute Code(s): R53.81 - Other malaise (2) Hemorrhagic cerebrovascular accident (CVA): Status: Acute Code(s): I61.9 - Nontraumatic intracerebral hemorrhage, unspecified Plan: R caudate. Also has volume loss and evidence of deep vicente lacunar infarcts on the right and minimal asymmetric hemosiderin staining along the right putamen. 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 (6) Tobacco abuse: Status: Chronic Code(s): Z72.0 - Tobacco use (7) Alcohol abuse: Status: Chronic Code(s): F10.10 - Alcohol abuse, uncomplicated (8) Hyperlipidemia: Status: Chronic Code(s): E78.5 - Hyperlipidemia, unspecified Qualifiers: Hyperlipidemia type: unspecified Qualified Code(s): E78.5 - Hyperlipidemia, unspecified (9) HTN (hypertension): Status: Chronic Code(s): I10 - Essential (primary) hypertension Qualifiers: Hypertension type: primary hypertension Qualified Code(s): I10 - Essential (primary) hypertension (10) DM neuro manif type II, uncontrolled: Status: Chronic Plan: Evidence of ischemic lacunar infarcts on the R and a hemorrhagic CVA in the R caudate. (11) History of colon polyps: Status: Chronic Code(s): Z86.010 - Personal history of colonic polyps (12) Lacunar infarction: Status: Chronic Code(s): I63.81 - Other cerebral infarction due to occlusion or stenosis of small artery (13) Non compliance w medication regimen: Status: Acute Code(s): Z91.148 - Patient's other noncompliance with medication regimen for other reason Plan: Had stopped all his medications for DM and HTN 1 and 1/2 years prior to the stroke and had only recently followed up with Dr. Castro to restart medications for DM. (14) BPH associated with nocturia: Status: Chronic Code(s): N40.1 - Benign prostatic hyperplasia with lower urinary tract symptoms; R35.1 - Nocturia Plan: Has been using saw palmetto for sx relief. (15) Anxiety and depression: Status: Chronic Code(s): F41.9 - Anxiety disorder, unspecified; F32.A - Depression, unspecified Plan: Started on Sertraline. Plan 1. DC home 2. Follow up with Dr. Simmons for neurology 3. Follow up with Dr. Castro 4. No driving until he is released by neurologist to drive. 5. Rx's given for Nicotine patches for 21 mg X 4 weeks, 14 mg X 2 weeks and 7 mg X 2 weeks. Patch is likely not going to use. He took the patch off prior to leaving the acute rehab floor so he could go outside and smoke. 6. Stressed the importance of taking medications as prescribed and regular follow up with his PCP to decrease risk of further CVA's and CVD going forward. Medications at Discharge Home Medications saw palm 160 mg-vit E 100 unit-selen 100 qwp-rrui-uhsfbg-pygeum tablet ([employer]) 1 tab PO DAILY supplement 12/16/22 aspirin 81 mg capsule 81 mg PO DAILY heart 02/20/23 multivitamin-iron 9 mg-folic acid 400 mcg-calcium and minerals tablet (Thera M Plus (ferrous fumarate)) 1 tab PO DAILY vitamin 02/20/23 acetaminophen 500 mg tablet 1,000 mg (2 x 500 mg) PO Q8H PRN PRN Pain 1-10 Or Fever 02/27/23 atorvastatin 80 mg tablet (Lipitor) 80 mg PO QHS cholesterol #30 tabs 02/27/23 clonazepam 0.5 mg tablet 1 mg (2 x 0.5 mg) PO BID #42 tabs 02/27/23 divalproex 250 mg tablet,delayed release 250 mg PO BIDCM #60 tabs 02/27/23 glimepiride 2 mg tablet 2 mg PO BREAKFAST #30 tabs 02/27/23 insulin glargine 100 unit/mL (3 mL) subcutaneous pen (Basaglar Tempo Pen (U-100) Insulin) 18 unit (0.18 mL) subcut .qam diabetes #2 pens 02/27/23 lisinopril 20 mg tablet 20 mg PO DAILY #30 tabs 02/27/23 nicotine 14 mg/24 hr daily transdermal patch 1 patch transdermal DAILY #14 ea 02/27/23 nicotine 21 mg/24 hr daily transdermal patch 1 patch transdermal Q24H smoking cessation #21 patches 02/27/23 nicotine 7 mg/24 hr daily transdermal patch 1 patch transdermal Q24H #7 ea 02/27/23 omeprazole 40 mg capsule,delayed release 40 mg PO DAILY gerd #30 caps 02/27/23 sertraline 100 mg tablet 100 mg PO DAILY #30 tabs 02/27/23 Hospital Course Operations None Procedures Electroencephalogram (He had an EEG at previous hospital that was negative for seizure activity. ) Summary of Care Provided Minutes Spent on Discharge: 40 Hospital Course: SYL AGUAYO, is a 62 YO M with a PMH of HTN, DM II (diagnosed in 2020), tobacco dependence, HLD, colon polyps and BPH with nocturia who presented to an ER on 02/15/23 after having an ABN OP MRI of the head. The MRI was ordered by his PCP because he had been having ABN movements of the LUE/LLE for the preceding 2 weeks. MRI revealed a subacute intracerebral hemorrhage in the right caudate likely related to uncontrolled hypertension. He also had volume loss and evidence of deep vicente lacunar infarcts on the right and minimal asymmetric hemosiderin staining along the right putamen. He was admitted to the neurointensive care unit at [facility] and started on Keppra for suspected focal motor seizures. Consult was obtained with neurosurgery. No operative intervention was required. NIH was 3 for limb ataxia of the left upper and left lower extremities and drift with the left arm. Lipid panel showed an LDL of 79 and a low HDL at 37. He was taking Crestor at admission to the hospital. His hemoglobin A1c was uncontrolled at 9.8. An EEG showed no epileptiform activity but, did show mild cortical dysfunction in the right frontotemporal region. He continued to have hemiballism in the Left arm and leg and the neuro epilepsy service was consulted. Keppra was discontinued and he was placed on Klonopin 0.5 mg twice daily which he is to take for a total of 30 days. Abnormal movements should decrease/cease with resolution of the hemorrhage. He was stable for the duration of his admission at [facility]. While there he was seen by PT/OT/ST and acute inpt rehab was recommended at OR from his acute hospital stay. He was transferred to the acute inpt rehab unit at [facility] on 02/20/23 for 3 hours of therapy daily to restore function/independence at or near his level prior to the hemorrhagic CVA. Mr. Aguayo told me that he had been sober for the 2 months preceding the stroke however, he told other people different durations of sobriety making me wonder if he really has stopped drinking. He started drinking and smoking as a teenager and there is a FH of alcoholism. At the time of admission he was having fairly violent flinging of the LUE and continuous movement of the LLE, primarily the foot and distal leg. Klonopin was increased to 1 mg BID and the movements were smaller and and less often. They increase with stress/anxiety. He was still quite bothered by the movements and Depakote was added to the Drug regimen. He failed Gabapentin at [facility]. At the time of DC he was a little drowsy but, the movements were much better controlled unless, you talk about stopping drinking/smoking and then they get more frequent. I have some trepidation about starting a patient with alcohol and smoking addictions on a controlled substance but, there did not seem to be a better alternative for controlling the hemiballism. He was instructed he could not drive while until he is cleared to drive by Dr. Simmons. He was also told a number of times that he can not suddenly stop Klonopin or he will have withdrawal. I stressed that the medication will need to be tapered off. While on rehab we discussed anxiety and depression with him. He denied feeling depressed but, he admitted to be anxious much of the time and told me that he drinks to calm his nerves at time. He was agreeable to starting an SSRI and he was started on Sertraline. He had no adverse side effects while on rehab. I think he would benefit from counselling for depression/anxiety /addiction. I recommended [facility] in [place]. Insurance cut Mr. Aguayo after only 1 week but, he did make progress while he was in therapy. Prior to discharge he was independent with eating, grooming and upper body dressing. He was standby assist for lower body dressing and bathing. He was contact-guard assist for tub/shower transfer. His girlfriend will be staying with him to provide assistance. He was able to ascend/descend 3 steps with unilateral handrail at contact-guard assist. He had ambulated up to 200 feet with no assistive device and supervision with no falls but he tends to lose his balance and lurch to the left at times. He was discharged home on 02/28/23 and will have OP PT/OT/ST at [facility]. His children and SO will make sure that he is adequately cared for and supervised at home. Follow up appts were scheduled for him prior to DC. These include Dr. Castro on 03/13/23 at 2 PM, Dr. Simmons on 03/31/23 at 3:40 PM and Salena Escalera on 03/28/23 ([facility] cerebrovascular dept). He was instructed not to drive until released by Dr. Simmons to do so. Smoking cessation counselling was given several times during his admission but, he took his nicotine patch off prior to leaving the rehab floor and he told someone he was going to go out and smoke. BS's prior to DC were very well controlled with no hypoglycemia. He was told that his goals for tx were a HGBA1C of 7 or less, BP of < 130/80, an LDL of 70 or less and no smoking. Physical Exam Const alert, oriented x3 and no apparent distress Constitutional Narrative: Somewhat groggy but, able to answer questions and he has been able to do therapy. He looks less anxious and overall better since admission 1 week ago. His face is no longer drawn and he is less impulsive and restless. He is not setting off his alarms. General Appearance: cooperative HEENT normocephalic and head/scalp atraumatic Eyes PERRL and EOMs intact bilaterally Neck No nuchal rigidity, supple, no JVD and no carotid bruits General: trachea midline Resp clear to auscultation bilaterally Effort and Inspection: Negative for tachypneic, labored or uses accessory muscles Auscultation: diminished lung sounds Cardio regular rate, regular rhythm, S1 normal heart sound, S2 normal heart sound, no murmurs, no rub and no gallops Cardio Narrative: No ectopy, heart sounds are somewhat distant. GI normal to inspection, nondistended, normoactive bowel sounds, soft to palpation and non-tender GI Narrative: No guarding with palpation Extremity no calf tenderness General Extremity: Negative for clubbing or edema Skin no wounds and no jaundice General Skin Exam: no breakdown Rashes: no rashes Neuro CN's II-XII intact bilaterally Neuro Narrative: Minimal weakness on the left side compared to the left. Still having abnormal movements of the LUE>LLE but, when he is in his room by himself they are mild. ABN movement escalates with stress/anxiety. No visual field cuts. No extinction. Ataxia of the LUE>LLE but, this may be due to the abnormal movements increasing when I am examining him. No sensory loss. He does have mild cognitive dysfunction but, is generally able to correct his mistakes with minimal cuing. Psych cooperative, denies hallucinations and denies homicidal ideation Psych Narrative: He is anxious and restless. Appearance: appropriate Attitude: evasive and No agitated Weight / BMI Weight Weight: 149 lb 7.574 oz Body Mass Index (BMI) 22.1 ABG / Lab / Microbiology Data 02/21/23 05:35 02/21/23 05:35 Indicators for Scoring Admitted with or Primary Diagnosis of CVA/Stroke: Yes Hx of CVA/Stroke: No Modified Brandt Score MRS Score at time of Evaluation: 4-Moderate/severe disability NIHSS NIHSS 1a. Level of Consciousness: Alert; keenly responsive 1b. LOC Questions: Answers BOTH questions correctly. 1c. LOC Commands: Performs both tasks correctly. 2. Best Gaze: Normal 3. Visual: No visual loss 4. Facial Palsy: Normal symmetrical movements 5a. Left Arm: Drift; arm drifts downward but doesn?t hit the bed 5b. Right Arm: No drift; arm holds 90 (or 45) degrees for full 10 seconds 6a. Left Leg: No drift; leg holds 30-degree position for full 5 seconds 6b. Right Leg: No drift; leg holds 30-degree position for full 5 seconds 7. Limb Ataxia: Present in 2 limbs 8. Sensory: Normal; no sensory loss 9. Best Language: No aphasia; normal 10. Dysarthria: Normal 11. Extinction and Inattention: No abnormality Total: 3 D/C Instructions Discharge Diet: Low fat / Low cholesterol and Carb Control Diet Weight Bearing Status: Full weight bearing Additional Activity Instructions: You can not drive until released by the neurologist to drive. Call your doctor if you observe: Fever of 101 or Higher, Shortness of breath, Dizziness, Fainting spells, Swelling in the ankles, Chest pain, Increased palpitations (irregular heartbeat) and Calf discomfort Pending Tests Upon Discharge: none Please Follow Up With: Audelia Castro MD When: Dr. Castro on 03/[address] Chelsie Simmons on 03/31/23. Marie Escalera on 03/28/23. Meaningful Use Info Meaningful Use Diagnoses (Choose all that apply): Hemorrhagic CVA CVA Therapy Assessed for PT,OT and/or ST?: Yes Discharge Plan Admission Admit Date/Time: 02/20/23 19:01 Primary Reason for Your Visit: post stroke debility Attending Provider: Brunilda Bey Primary Care Provider: Audelia Castro Instructions Patient Instructions: Hemorrhagic Stroke ..., Stroke and Heart Disease, COPD Quit Smoking, Symptoms of Stroke, Hypertension Stroke Link, Coping with Smoking Withdrawal, Health Effects of Smoking, Discharge Instructions for Stroke Additional Instructions / Restrictions: 1. There are 2 kinds of stroke. The most common type of stroke is an ischemic stroke. This is when you have atherosclerosis or blood clots and blood flow to a certain area of your brain is cut off. This type of stroke does not show up on a CT scan of the head for 24 to 48 hours. About 15% of strokes are due to hemorrhage or bleeding into the brain. The strokes show up on a CAT scan immediately. The most common cause of this type of stroke is uncontrolled hypertension. You had a hemorrhagic stroke. 2. You have multiple risk factors for strokes/heart disease and these include smoking, being a man over the age of 45, high cholesterol, hypertension and diabetes mellitus. The diabetes has not been well controlled and your blood pressure was also not controlled. To prevent further strokes and heart attacks you should keep these goals in mind: Hemoglobin A1c less than 7, blood pressure less than 130/80, LDL (bad cholesterol) 70 or less. If you can maintain these goals and quit smoking your risk for further strokes and heart attacks will significantly decrease. Taking your medication as instructed every day is Critical in controlling BP, high blood pressure and Diabetes. 3. The abnormal movements you are having is called hemiballism. This occurs when you have a stroke deep in the brain. The EEG did not show any seizure activity. These abnormal movements should go away in approximately 4 to 6 weeks. You are on 2 medications to control these abnormal movements and the medications are Klonopin and Depakote. These medications can make you sleepy. The Klonopin is an addictive medication and if you suddenly stop it you will go into withdrawal. It will need to be tapered off when the abnormal movements stop. Although you still have the abnormal movements, they are much better than at admission. When you get anxious the movements increase and they also increase when you feel stressed. 4. Smoking is an addiction, just like alcohol. It is difficult to quit any addiction and often you need help to quit. You are currently on a nicotine patch. It will be tapered off. Recommendations are to use a 21 mg patch for 4 weeks then a 14 mg patch for 2 weeks and finally as 7 mg patch for 2 weeks. You should not smoke while you are on the patch. If you find you are having craving for cigarettes I recommend you call the smoking cessation counselor at [facility] to receive additional help and counseling. You can call the hospital at [phone] and ask for the smoking cessation coordinator. 5. Good lucchas Pereira. You will be getting OP therapy for the stroke and I hope you have continued improvement and success in managing you diabetes, high blood pressure and high cholesterol. If you or your family has any questions after you leave rehab please do not hesitate to call me. OFFICE: [phone] CELL: [phone] Discharge Orders/Prescriptions Prescriptions: New lisinopril 20 mg Tablet 20 mg PO DAILY Qty: 30 0RF clonazepam 0.5 mg Tablet 1 mg PO BID Qty: 42 0RF glimepiride 2 mg Tablet 2 mg PO BREAKFAST Qty: 30 0RF divalproex 250 mg Tablet,Delayed Release (Dr/Ec) 250 mg PO BIDCM Qty: 60 0RF acetaminophen 500 mg Tablet 1,000 mg PO Q8H PRN PRN (Reason: Pain 1-10 Or Fever) 0RF sertraline 100 mg tablet 100 mg PO DAILY Qty: 30 0RF nicotine 14 mg/24 hr patch 24 hour 1 patch transdermal DAILY Qty: 14 0RF nicotine 7 mg/24 hr patch 24 hour 1 patch transdermal Q24H Qty: 7 0RF Continued Prostate Health 160-100-100 mg-unit-mcg tablet 1 tab PO DAILY Thera M Plus (ferrous fumarat) 9 mg iron-400 mcg tablet 1 tab PO DAILY aspirin 81 mg capsule 81 mg PO DAILY atorvastatin [Lipitor] 80 mg tablet 80 mg PO QHS Qty: 30 0RF omeprazole 40 mg capsule,delayed release(DR/EC) 40 mg PO DAILY Qty: 30 1RF nicotine 21 mg/24 hr patch 24 hour 1 patch transdermal Q24H Qty: 21 0RF insulin glargine [Basaglar Tempo Pen(U-100)Insln] 100 unit/mL (3 mL) insulin pen 18 unit subcut .qam Qty: 2 0RF Discontinued lisinopril 10 mg tablet 20 mg PO DAILY glimepiride 1 mg tablet 2 mg PO DAILY cyclobenzaprine 10 mg tablet 10 mg PO Q8H PRN (Reason: muscle spasm) rosuvastatin [Crestor] 5 mg tablet 5 mg PO DAILY magnesium 200 mg tablet 200 mg PO DAILY sucralfate [Carafate] 1 gram tablet 1 g PO BID Qty: 30 0RF Hold Instructions: MD Ordered gabapentin 100 mg capsule 100 mg PO Q8H Rx Instructions: for 30 days clonazepam 0.5 mg tablet 0.5 mg PO BID Rx Instructions: for 53 doses Referrals / Follow Up: chelsie simmons [Other] - 03/31/23 3:40 pm (Neuro ) salena escalera [Other] - 03/28/23 9:00 am (cerebrovascular ) Audelia Castro MD [Primary Care Provider] - 03/13/23 2:00 pm Disposition Disposition (needs filled in before D/C Order can be placed): Home, Self Care Charges/Coding Visit Charges Inpatient E&M: 09011 Disch Hosp >30min
== END 2023-02-27 14:00 | disposition home or self-care (01) | DRG 57 ==
PROVIDERS: Admitting Provider Internal Medicine; PCP Internal Medicine; Visit Provider Internal Medicine
DX: I69.354 Hemiplegia and hemiparesis following cerebral infarction affecting left non-dominant side (principal); G40.109 Localization-related (focal) (partial) symptomatic epilepsy and epileptic syndromes with simple partial seizures, not intractable, without status epilepticus; G25.5 Other chorea; E11.49 Type 2 diabetes mellitus with other diabetic neurological complication; Z79.4 Long term (current) use of insulin; I69.393 Ataxia following cerebral infarction; E78.00 Pure hypercholesterolemia, unspecified; I10 Essential (primary) hypertension; F10.10 Alcohol abuse, uncomplicated; F32.A Depression, unspecified; F17.200 Nicotine dependence, unspecified, uncomplicated; I69.318 Other symptoms and signs involving cognitive functions following cerebral infarction; F41.9 Anxiety disorder, unspecified; N40.1 Benign prostatic hyperplasia with lower urinary tract symptoms; R35.1 Nocturia; Z79.899 Other long term (current) drug therapy; Z79.82 Long term (current) use of aspirin
CPT/HCPCS: 36415; 80053; 82962; 83036; 83735; 84100; 85027; 92507; 92523; 97110; 97112; 97116; 97129; 97130; 97162; 97166; 97530; 97535; 97803